=== PATIENT | female | born 1975 | race Caucasian/White ===

== ENCOUNTER → 2021-11-16 15:51 | Outpatient (CLI) | payer OTHER, MEDICAID, SELFPAY ==
--- NOTE | 2021-11-16 15:55 | DI.RAD.S_ITS ---
PROCEDURE: XR FOOT RT MIN 3V INDICATIONS: Right foot pain TECHNIQUE: 3 views of the foot were acquired. COMPARISON: None. FINDINGS: Bones: No fractures or dislocations. No suspicious bony lesions. Calcaneal spur is present. Soft tissues: No tibiotalar joint effusion. Achilles tendon appears normal. IMPRESSION: No visualized acute fracture or dislocation. However, if clinical concern and/or pain persist, short interval imaging followup in 7-10 days is recommended, as occult injury cannot be definitively excluded. Dictated by: Kathleen Urbano M.D. on 11/16/2021 at 21:01 Approved by: Kathleen Urbano M.D. on 11/16/2021 at 21:02
== END ==
PROVIDERS: Referring Provider Nurse Practitioner Family; Visit Provider Nurse Practitioner Family
DX: S99.921A Unspecified injury of right foot, initial encounter (principal); X58.XXXA Exposure to other specified factors, initial encounter
CPT/HCPCS: 73630

== ENCOUNTER → 2022-03-05 15:14 | Outpatient (CLI) | payer OTHER, MEDICAID, SELFPAY ==
[2022-03-05 15:49] LABS: Add Manual Diff / Slide Review NO; Basophils Absolute Auto 0 /uL (0-100); Basophils Percent Auto 0.8 % (0-2); Eosinophils Absolute Auto 100 /uL (0-450); Eosinophils Percent Auto 1.9 % (2-4); Hematocrit 46.2 % (36-46); Hemoglobin 15.3 g/dL (12.0-16.0); Lymphocytes Absolute Auto 1600 /uL (1100-4500); Lymphocytes Percent Auto 26.5 % (25-40); Mean Corpuscular HGB Conc 33.2 % (30-36); Mean Corpuscular Hemoglobin 30.8 PG (26-34); Mean Corpuscular Volume 92.9 fL (80-100); Monocytes Absolute Auto 600 /uL (0-900); Monocytes Percent Auto 9.3 % (3-14); Neutrophils Absolute Auto 3600 /uL (1500-7000); Neutrophils Percent Auto 61.5 % (50-75); Platelet Count 201 X10^3/uL (150-400); Red Blood Cell Count 4.97 X10^6/uL (4.0-5.2); White Blood Cell Count 5.9 X10^3/uL (4.5-11.0)
[2022-03-05 16:33] LABS: Alanine Aminotransferase 52 IU/L (<35); Albumin 4.5 g/dL (3.5-5.0); Albumin Globulin Ratio 1.4 (1.0-2.8); Alkaline Phosphatase 169 U/L (38-126); Aspartate Aminotransferase 30 IU/L (14-36); BUN Creatinine Ratio 30.4 (6-22); Bilirubin Total 0.4 mg/dL (0.2-1.3); Blood Urea Nitrogen 24 mg/dL (7-17); Calcium 10.2 mg/dL (8.4-10.2); Carbon Dioxide 25 mmol/L (22-32); Chloride 100 mmol/L (98-107); Cholesterol 157 mg/dL (140-199); Estimated Glomerular Filt Rate > 60 mL/min (>60); Globulin 3.3 g/dL (1.7-4.1); Glucose 333 mg/dL (70-100); HDL Cholesterol 91 mg/dL (40-60); HEMOLYSIS < 15 (0-50); LDL Cholesterol Calculated 17 mg/dL (<100); Potassium 4.4 mmol/L (3.4-5.1); Sodium 136 mmol/L (137-145); Total Protein 7.8 g/dL (6.3-8.2); Triglycerides 246 mg/dL (35-150)
[2022-03-05 17:17] LABS: Hemoglobin A1C% w Est Avg Glu 9.8 % (4.0-6.0)
[2022-03-05 19:39] LABS: Creatinine Urine Random 32.2 mg/dL
[2022-03-05 19:45] LABS: Microalbumin Urine Random 8.6 mg/dL (0-1.6)
== END ==
PROVIDERS: PCP Family Medicine; Referring Provider Family Medicine; Visit Provider Family Medicine
DX: E11.65 Type 2 diabetes mellitus with hyperglycemia (principal); E78.5 Hyperlipidemia, unspecified; I10 Essential (primary) hypertension; K50.90 Crohn's disease, unspecified, without complications; Z79.4 Long term (current) use of insulin; Z93.2 Ileostomy status
CPT/HCPCS: 36415; 80053; 80061; 82043; 82570; 83036; 85025

== ENCOUNTER → 2022-07-13 13:12 | Outpatient (CLI) | payer OTHER, MEDICAID, SELFPAY ==
[2022-07-13 13:57] LABS: Alanine Aminotransferase 57 IU/L (<35); Albumin 4.7 g/dL (3.5-5.0); Albumin Globulin Ratio 1.5 (1.0-2.8); Alkaline Phosphatase 106 U/L (38-126); Aspartate Aminotransferase 38 IU/L (14-36); Bilirubin Total 0.9 mg/dL (0.2-1.3); Bilirubin Unconjugated 0.6 mg/dL (0.0-1.1); Globulin 3.1 g/dL (1.7-4.1); HEMOLYSIS < 15 (0-50); Total Protein 7.8 g/dL (6.3-8.2)
[2022-07-13 16:14] LABS: Creatinine Urine Random 77.4 mg/dL
[2022-07-13 16:18] LABS: Microalbumi Creatinin Ratio Ur 140.8 ug/mg CR (<30); Microalbumin Urine Random 10.9 mg/dL (0-1.6)
[2022-07-14 06:07] LABS: x Labcorp Estim. Avg Glu (eAG) 237 mg/dL (.); x Labcorp Hemoglobin A1c 9.9 % (4.8-5.6)
== END ==
PROVIDERS: PCP Family Medicine; Referring Provider Registered Nurse Diabetes Educator; Visit Provider Registered Nurse Diabetes Educator
DX: E11.65 Type 2 diabetes mellitus with hyperglycemia (principal); Z79.4 Long term (current) use of insulin; R74.8 Abnormal levels of other serum enzymes; N89.8 Other specified noninflammatory disorders of vagina
CPT/HCPCS: 36415; 80076; 82043; 82570; 83036; 87210

== ENCOUNTER 2022-10-26 14:58 | Emergency (ER) | payer OTHER, MEDICAID, SELFPAY ==
[2022-10-26 15:02] VITALS: BP 118/92; PULSE 93; RESP 18; TEMP 36.6; O2SAT 98; BMI 26.9
[2022-10-26] MEDS: ONDANSETRON 4 MG/2 ML INJ IV (15:38)
[2022-10-26 15:47] LABS: Add Manual Diff / Slide Review NO; Basophils Absolute Auto 0 /uL (0-100); Basophils Percent Auto 0.8 % (0-2); Eosinophils Absolute Auto 100 /uL (0-450); Hematocrit 46.3 % (36-46); Hemoglobin 15.9 g/dL (12.0-16.0); Lymphocytes Absolute Auto 1400 /uL (1100-4500); Lymphocytes Percent Auto 24.3 % (25-40); Mean Corpuscular HGB Conc 34.3 % (30-36); Mean Corpuscular Hemoglobin 32.2 PG (26-34); Monocytes Absolute Auto 500 /uL (0-900); Monocytes Percent Auto 9.2 % (3-14); Neutrophils Absolute Auto 3700 /uL (1500-7000); Neutrophils Percent Auto 64.7 % (50-75); Platelet Count 181 X10^3/uL (150-400); Red Blood Cell Count 4.93 X10^6/uL (4.0-5.2); Red Cell Distribution Width 12.4 % (11.6-14.8); White Blood Cell Count 5.7 X10^3/uL (4.5-11.0)
[2022-10-26 15:50] LABS: Appearance Urine UA SL CLOUDY; Color Urine UA BROWN; Glucose Urine UA 3+ g/dL (Negative); Ketones Urine UA TRACE (NEGATIVE); Leukocyte Esterase Urine UA TRACE (NEGATIVE); Nitrite Urine UA NEGATIVE (Negative); Occult Blood Urine UA 3+ (Negative); Protein Urine UA 2+ (Negative); Specific Gravity Urine UA 1.025 (1.000-1.035); Urobilinogen Urine UA 0.2 E.U./dL (0.2)
[2022-10-26 15:52] LABS: pH Urine UA 5.5 (4.5-8.0)
[2022-10-26 15:54] LABS: Bilirubin Urine UA Negative (NEGATIVE); Pregnancy Test Urine Negative (Negative)
[2022-10-26 15:57] LABS: Bacteria Urine Few (2-10); Culture Indicated Urine Specimen Cultured; Ictotest Urine Negative (Negative); RBC Urine >100/HPF (0-5/HPF); Squamous Epithelial Cell Urine 0-1 /HPF (0-5/HPF); WBC Urine 10-30/HPF (0-5/HPF)
[2022-10-26 16:06] LABS: Alanine Aminotransferase 59 IU/L (<35); Albumin 4.6 g/dL (3.5-5.0); Albumin Globulin Ratio 1.2 (1.0-2.8); Alkaline Phosphatase 66 U/L (38-126); Aspartate Aminotransferase 61 IU/L (14-36); BUN Creatinine Ratio 25.5 (6-22); Blood Urea Nitrogen 28 mg/dL (7-17); Calcium 9.5 mg/dL (8.4-10.2); Carbon Dioxide 25 mmol/L (22-32); Chloride 100 mmol/L (98-107); Estimated Glomerular Filt Rate > 60 mL/min (>60); Globulin 3.8 g/dL (1.7-4.1); Glucose 239 mg/dL (70-100); HEMOLYSIS < 15 (0-50); Lipase 315 U/L (23-300); Potassium 3.9 mmol/L (3.4-5.1); Sodium 136 mmol/L (137-145); Total Protein 8.4 g/dL (6.3-8.2)
--- NOTE | 2022-10-26 18:45 | ED.ABDPAIN ---
HPI - Abdominal Pain General Chief Complaint: Abdominal Pain Stated Complaint: crohn's flare up Time Seen by Provider: 10/26/22 18:44 Source: patient Mode of arrival: Wheelchair History of Present Illness HPI narrative: 47-year-old female smoker with a history of Crohn's, PTSD, 79 she, anxiety, insomnia, depression, diverting ostomy, type 2 diabetes presents with a chief complaint of abdominal pain, decreased appetite with vomiting, and change in stoma output. She denies any routine medications for the treatment of her Crohn's and is not currently under the care of a oxygen system tester. She states that she is been well controlled for about the past 15 years. She denies any change in diet, no recent travel, change in medications. She states that she was able to keep a small amount of food down earlier with the help of Zofran. She states that she had no output from her stoma for about 48 hours and it started again today but is incredibly foul-smelling. Related Data Home Medications Medication Instructions Recorded Confirmed atorvastatin 20 mg tablet 20 mg PO 05/31/22 07/13/22 Previous Rx's Medication Instructions Recorded empagliflozin 25 mg tablet 25 mg PO DAILY #90 tabs 03/05/22 (Jardiance) fluoxetine 20 mg capsule (Prozac) 60 mg PO DAILY #90 caps 03/05/22 losartan 25 mg tablet 25 mg PO BID #180 tabs 03/05/22 metformin 500 mg tablet 1,000 mg PO BIDWMEAL #360 tabs 03/05/22 sitagliptin phosphate 100 mg 100 mg PO DAILY #90 tabs 03/05/22 tablet (Januvia) trazodone 50 mg tablet 50 mg PO DAILY #90 tabs 03/05/22 verapamil 120 mg 24 hr 120 mg PO DAILY #90 caps 03/05/22 capsule,extended release atorvastatin 40 mg tablet (Lipitor) 40 mg PO BEDTIME cholesterol #90 03/06/22 tabs estradiol 0.05 mg/24 hr semiweekly 1 patch transdermal 2XW #8 ea 04/07/22 transdermal patch (Vivelle-Dot) progesterone micronized 100 mg 100 mg PO BEDTIME PRN Post 04/07/22 capsule oophorectomy #30 caps liraglutide 0.6 mg/0.1 mL (18 mg/3 0.6 mg (0.1 mL) SUBCUT DAILY 04/13/22 mL) subcutaneous pen injector diabetes #6 mL (Victoza 2-Onel) aripiprazole 2 mg tablet 2 mg PO BEDTIME #30 tabs 05/31/22 fluoxetine 60 mg tablet 60 mg PO DAILY #90 tabs 05/31/22 pen needle, diabetic 31 gauge x #100 ea 06/04/22 5/16 (Easy Touch) clotrimazole 1 % topical cream 1 applic topical BID 4 weeks #45 10/12/22 grams insulin glargine 100 unit/mL (3 10 unit (0.1 mL) SUBCUT QPM 10/12/22 mL) subcutaneous pen (Lantus diabetes #15 mL Solostar U-100 Insulin) pen needle, diabetic 29 gauge x #100 ea 10/12/22 1 (1st Tier Unifine Pentips) ondansetron HCl 4 mg tablet 4 mg PO Q6-8H PRN nausea and 10/22/22 vomiting #30 tabs rizatriptan 10 mg tablet (Maxalt) 10 mg PO Q2-4H PRN migraine 10/22/22 headache #10 tabs hydrocodone 5 mg-acetaminophen 325 1 tab PO Q4-6H PRN pain #10 tabs 10/26/22 mg tablet hyoscyamine sulfate 0.125 mg tablet 0.125 mg PO BID-QID PRN dyspepsia 10/26/22 #20 tabs pantoprazole 40 mg tablet,delayed 40 mg PO DAILY #30 tabs 10/26/22 release (Protonix) Allergies Allergy/AdvReac Type Severity Reaction Status Date / Time No Known Drug Allergies Allergy Verified 10/26/22 15:06 Review of Systems Review of Systems Narrative: GENERAL: See HPI HEENT: Denies sinus pain, ear pain, sore throat, difficulty swallowing, dizziness. RESPIRATORY: Denies dyspnea, cough, wheezing, hemoptysis, sputum. CARDIOVASCULAR: Denies chest pain, palpitations, orthopnea, edema, GASTROINTESTINAL: See HPI : Denies dysuria, frequency, incontinence, hematuria, urinary retention. MUSCULOSKELETAL: denies weakness, joint pain, or bony pain SKIN: Denies rash, skin lesions, or other NEUROLOGIC: Denies weakness, headache, numbness, change in speech, confusion, seizures, incoordination. PSYCHIATRIC: No concerning psychosocial issues. 12 point review of systems is negative except for those stated above Patient History Medical History ADHD Anxiety Benign essential HTN Chicken pox (~1983) Crohn disease (~2003) Decreased libido Depression Frequent UTI (~1992) Hyperlipidemia Ileostomy in place Insomnia Kidney stones (~1993) Migraines Persistent microalbuminuria associated with type 2 diabetes mellitus PTSD (post-traumatic stress disorder) Type 2 diabetes mellitus with hyperglycemia, with long-term current use of insulin (~2003) Family History Father Hypertension Mental health problem Substance abuse Mother Cancer Mental health problem Grandfather Cancer Mental health problem Stroke Grandmother Diabetes mellitus History of heart disease Hyperlipidemia Hypertension Mental health problem Stroke Grandfather Diabetes mellitus History of heart disease Hyperlipidemia Hypertension Mental health problem Grandmother Diabetes mellitus History of heart disease Hypertension Mental health problem Social History Smoking Status: Current every day smoker Smoking Status: Current every day smoker alcohol intake frequency: a few times a month Substance Use Type: does not use Exam Narrative Exam Narrative: GENERAL: [47] year old patient appears stated age. Well-developed patient, in mild distress. HEAD: Atraumatic. Normocephalic. EYES: Pupils equal round and reactive. Extraocular motions intact. No scleral icterus. No injection or drainage. ENT: Nose without bleeding, purulent drainage. Throat without erythema, tonsillar hypertrophy or exudate. Airway patent. NECK: Trachea midline. Non tender CARDIOVASCULAR: Regular rate and rhythm without murmurs, gallops, or rubs. RESPIRATORY: Clear to auscultation. Breath sounds equal bilaterally. No wheezes, rales, or rhonchi. GASTROINTESTINAL: Abdomen soft, non-tender, nondistended. EXTREMITIES: No edema or joint tenderness. BACK: Nontender without deformity or crepitance. No flank tenderness. NEURO: AOx3. SKIN: No rash or erythema of visible areas Initial Vital Signs Initial Vital Signs: Vital Signs Temperature 97.9 F 10/26/22 15:02 Pulse Rate 93 H 10/26/22 15:02 Respiratory Rate 18 10/26/22 15:02 Blood Pressure 118/92 H 10/26/22 15:02 Pulse Oximetry 98 10/26/22 15:02 Oxygen Delivery Method Room Air 10/26/22 15:02 Course Orders Ordered: Discontinued Medications Hydrocodone Bitart/Acetaminophen (Hydrocodone/Acet 5/325 Prepack) 1 bottle MISC SEEINSTR ONE Stop: 10/26/22 20:21 Last Admin: 10/26/22 20:34 Dose: 1 bottle Documented By: SB Sodium Chloride (Normal Saline 0.9%) 1,000 mls @ 1,000 mls/hr IV BOLUS ONE Stop: 10/26/22 19:53 Last Infusion: 10/26/22 20:33 Dose: 0 mls/hr Documented By: Admin: 10/26/22 19:38 Dose: 1,000 mls/hr Documented By: SB Sodium Chloride (Normal Saline 0.9%) 1,000 mls @ 1,000 mls/hr IV BOLUS ONE Stop: 10/26/22 21:19 Last Infusion: 10/26/22 21:23 Dose: 0 mls/hr Documented By: Admin: 10/26/22 20:32 Dose: 1,000 mls/hr Documented By: SB Ketorolac Tromethamine (Ketorolac 30 Mg/Ml Vial) 15 mg IV NOW ONE Stop: 10/26/22 20:21 Last Admin: 10/26/22 20:33 Dose: 15 mg Documented By: WILFRED Metoclopramide HCl (Metoclopramide 10 Mg/2 Ml Inj) 10 mg IV NOW ONE Stop: 10/26/22 20:21 Last Admin: 10/26/22 20:33 Dose: 10 mg Documented By: SB Ondansetron HCl (Ondansetron 4 Mg Odt) 4 mg PO NOW PRN PRN Reason: Nausea And Vomiting Ondansetron HCl (Ondansetron 4 Mg/2 Ml Inj) 4 mg IV NOW PRN PRN Reason: Nausea And Vomiting Last Admin: 10/26/22 15:38 Dose: 4 mg Documented By: ROGE Pantoprazole Sodium (Pantoprazole 40 Mg Vial) 40 mg IV NOW ONE Stop: 10/26/22 18:55 Last Admin: 10/26/22 19:36 Dose: 40 mg Documented By: SB Vital Signs Vital signs: Vital Signs - 8 hr 10/26/22 20:30 10/26/22 21:16 Pulse Rate 80 88 Respiratory Rate 16 17 Blood Pressure 130/83 Pulse Oximetry 100 97 Oxygen Delivery Method Room Air Room Air MDM - Abdominal Pain Lab Data 10/26/22 15:35 10/26/22 15:35 Labs: Lab Results 10/26/22 10/26/22 10/26/22 Range/Units 15:30 15:30 15:35 WBC 5.7 (4.5-11.0) X10^3/uL RBC 4.93 (4.0-5.2) X10^6/uL Hgb 15.9 (12.0-16.0) g/dL Hct 46.3 H (36-46) % MCV 94.0 (80-100) fL MCH 32.2 (26-34) PG MCHC 34.3 (30-36) % RDW 12.4 (11.6-14.8) % Plt Count 181 (150-400) X10^3/uL Neut % (Auto) 64.7 (50-75) % Lymph % (Auto) 24.3 L (25-40) % Logan % (Auto) 9.2 (3-14) % Eos % (Auto) 1.0 L (2-4) % Baso % (Auto) 0.8 (0-2) % Neut # (Auto) 3700 (6465-4499) /uL Lymph # (Auto) 1400 (8814-5112) /uL Logan # (Auto) 500 (0-900) /uL Eos # (Auto) 100 (0-450) /uL Baso # (Auto) 0 (0-100) /uL Sodium (137-145) mmol/L Potassium (3.4-5.1) mmol/L Chloride (98-107) mmol/L Carbon Dioxide (22-32) mmol/L BUN (7-17) mg/dL Creatinine (0.52-1.04) mg/dL Estimated GFR (>60) mL/min BUN/Creatinine Ratio (6-22) Glucose (70-100) mg/dL Calcium (8.4-10.2) mg/dL Total Bilirubin (0.2-1.3) mg/dL AST (14-36) IU/L ALT (<35) IU/L Alkaline Phosphatase (38-126) U/L Total Protein (6.3-8.2) g/dL Albumin (3.5-5.0) g/dL Globulin (1.7-4.1) g/dL Albumin/Globulin Ratio (1.0-2.8) Lipase (23-300) U/L Urine Color Brown Urine Appearance Sl cloudy Urine pH 5.5 (4.5-8.0) Ur Specific Dell 1.025 (1.000-1.035) Urine Protein 2+ H (Negative) Urine Glucose (UA) 3+ H (Negative) g/dL Urine Ketones Trace H (NEGATIVE) Urine Occult Blood 3+ H (Negative) Urine Nitrate Negative (Negative) Urine Bilirubin Negative (NEGATIVE) Ur Bilirubin Confirm Negative (Negative) Urine Urobilinogen 0.2 (0.2) E.U./dL Ur Leukocyte Esterase Trace H (NEGATIVE) Urine RBC >100/hpf H (0-5/HPF) Urine WBC 10-30/hpf H (0-5/HPF) Ur Squamous Epith Cells 0-1 /hpf (0-5/HPF) Urine Bacteria Few (2-10) H (None) Ur Culture Indicated? Specimen cultured Urine Test Negative (Negative) 10/26/22 Range/Units 15:35 WBC (4.5-11.0) X10^3/uL RBC (4.0-5.2) X10^6/uL Hgb (12.0-16.0) g/dL Hct (36-46) % MCV (80-100) fL MCH (26-34) PG MCHC (30-36) % RDW (11.6-14.8) % Plt Count (150-400) X10^3/uL Neut % (Auto) (50-75) % Lymph % (Auto) (25-40) % Logan % (Auto) (3-14) % Eos % (Auto) (2-4) % Baso % (Auto) (0-2) % Neut # (Auto) (5318-0438) /uL Lymph # (Auto) (3028-8241) /uL Logan # (Auto) (0-900) /uL Eos # (Auto) (0-450) /uL Baso # (Auto) (0-100) /uL Sodium 136 L (137-145) mmol/L Potassium 3.9 (3.4-5.1) mmol/L Chloride 100 (98-107) mmol/L Carbon Dioxide 25 (22-32) mmol/L BUN 28 H (7-17) mg/dL Creatinine 1.10 H (0.52-1.04) mg/dL Estimated GFR > 60 (>60) mL/min BUN/Creatinine Ratio 25.5 H (6-22) Glucose 239 H (70-100) mg/dL Calcium 9.5 (8.4-10.2) mg/dL Total Bilirubin 1.0 (0.2-1.3) mg/dL AST 61 H (14-36) IU/L ALT 59 H (<35) IU/L Alkaline Phosphatase 66 (38-126) U/L Total Protein 8.4 H (6.3-8.2) g/dL Albumin 4.6 (3.5-5.0) g/dL Globulin 3.8 (1.7-4.1) g/dL Albumin/Globulin Ratio 1.2 (1.0-2.8) Lipase 315 H (23-300) U/L Urine Color Urine Appearance Urine pH (4.5-8.0) Ur Specific Dell (1.000-1.035) Urine Protein (Negative) Urine Glucose (UA) (Negative) g/dL Urine Ketones (NEGATIVE) Urine Occult Blood (Negative) Urine Nitrate (Negative) Urine Bilirubin (NEGATIVE) Ur Bilirubin Confirm (Negative) Urine Urobilinogen (0.2) E.U./dL Ur Leukocyte Esterase (NEGATIVE) Urine RBC (0-5/HPF) Urine WBC (0-5/HPF) Ur Squamous Epith Cells (0-5/HPF) Urine Bacteria (None) Ur Culture Indicated? Urine Test (Negative) [facility] Narrative Medical decision making narrative: CC: 47-year-old female with nausea, vomiting, decreased appetite Complicating co-morbidities: Crohn's, hyperlipidemia Data collected from: Patient Medical records reviewed: Prior notes reviewed in our EMR Differential considered, but not limited to: Crohn's flare versus obstruction versus infectious process versus other Exam documented above, pertinent findings include: Moist mucous membranes, heart rate regular, abdomen is soft, mildly tender, bowel sounds present Lab Test results independently reviewed as above. Pertinent findings: No leukocytosis or left shift, no signs of anemia, primary electrolytes within normal limits, creatinine slightly increased at 1.1 Independently reviewed EKG as above Imaging studies independently reviewed: ABD/Pelvis demonstrates mild stranding in the perirectal fat which could be inflammatory versus postsurgical change, prior colectomy and left renal scarring Treatments: Saline, Zofran, Protonix, Reglan, ketorolac Re-evaluations: Pain well controlled, patient tolerating orals Discussion: Patient's history and physical exam are reassuring, multiple diagnoses considered as noted above. Response to therapies is reassuring, no significant lab abnormalities and imaging shows no evidence a surgical cause, no bowel obstruction. Over the course of the visit her pain is well-controlled and she is tolerating orals. No further evaluation or treatment needed at this time. Patient appropriate for discharge. Disposition: see below, along with detailed discharge instructions that have been reviewed with patient as well as indications for ED re-evaluation and additional outpatient follow up Discharge Plan Departure Patient Disposition: Home Clinical Impression: Abdominal pain Instructions: DI for Abdominal Pain-Adult Activity Restrictions/Additional Instructions: *You have been diagnosed with [abdominal pain] * As we discussed your history and physical exam as well as labs and imaging are very reassuring. There is no evidence of any severe diagnoses that would require a specific or immediate intervention. *What to do: *Please continue to take your regular medications as directed. [x ] New medication prescriptions sent to your pharmacy: [ [facility]] *Please follow up with your primary care provider in 2-3 days, call for an appointment. Let them know you were seen in the Emergency Department and that we ask that you be seen in follow up. We will electronically transmit a record of today's note if your PCP is in our system *Please consider a clear liquid diet for the next 24-48 hours and then slowly advance to regular as tolerated. Also, try to avoid alcohol, nicotine, caffeine, spicy, acidic or fatty foods as this may worsen your symptoms *If you do not have a primary care provider please contact the [facility] Resource line at [phone]. They will ask some questions about your medical history and help get you set up with a doctor in the community. *Return to Emergency Department if you should have any new, worsening or concerning symptoms, such as [fever greater than 101 F, shaking chills, worsening pain, persistent vomiting or other bothersome symptoms] Prescriptions: New hydrocodone-acetaminophen 5-325 mg tablet 1 tab PO Q4-6H PRN (Reason: pain) Qty: 10 0RF pantoprazole [Protonix] 40 mg tablet,delayed release (DR/EC) 40 mg PO DAILY Qty: 30 0RF hyoscyamine sulfate 0.125 mg tablet 0.125 mg PO BID-QID PRN (Reason: dyspepsia) Qty: 20 0RF No Action atorvastatin [Lipitor] 40 mg tablet 40 mg PO BEDTIME Qty: 90 3RF rizatriptan [Maxalt] 10 mg tablet 10 mg PO Q2-4H PRN (Reason: migraine headache) Qty: 10 11RF Rx Instructions: do not exceed 2 doses per 24 hrs ondansetron HCl 4 mg tablet 4 mg PO Q6-8H PRN (Reason: nausea and vomiting) Qty: 30 2RF Jardiance 25 mg tablet 25 mg PO DAILY Qty: 90 3RF fluoxetine [Prozac] 20 mg capsule 60 mg PO DAILY Qty: 90 3RF losartan 25 mg tablet 25 mg PO BID Qty: 180 3RF metformin 500 mg tablet 1,000 mg PO BIDWMEAL Qty: 360 3RF Januvia 100 mg tablet 100 mg PO DAILY Qty: 90 3RF trazodone 50 mg tablet 50 mg PO DAILY Qty: 90 3RF verapamil 120 mg capsule,ext rel. pellets 24 hr 120 mg PO DAILY Qty: 90 3RF atorvastatin 20 mg tablet 20 mg PO aripiprazole 2 mg tablet 2 mg PO BEDTIME Qty: 30 1RF fluoxetine 60 mg tablet 60 mg PO DAILY Qty: 90 0RF (DME) pen needle, diabetic [Easy Touch] 31 gauge x 5/16 needle See Rx Instructions .ROUTE .MEDSUPPLY Qty: 100 3RF Rx Instructions: As directed, to be used to inject insulin once daily estradiol [Vivelle-Dot] 0.05 mg/24 hr patch semiweekly 1 patch transdermal 2XW Qty: 8 11RF Rx Instructions: apply 1 patch for 3 days alternating with 1 patch for 4 days each week for 3 wks per 4-wk cycle progesterone micronized 100 mg capsule 100 mg PO BEDTIME PRN (Reason: Post oophorectomy) Qty: 30 8RF Victoza 2-Onel 0.6 mg/0.1 mL (18 mg/3 mL) pen injector 0.6 mg SUBCUT DAILY Qty: 6 11RF insulin glargine [Lantus Solostar U-100 Insulin] 100 unit/mL (3 mL) insulin pen 10 unit SUBCUT QPM Qty: 15 11RF Rx Instructions: start 10 units, increase 1 unit every 2-3 days to a goal of 25-30 units nightly. clotrimazole 1 % cream 1 applic topical BID 28 Days Qty: 45 11RF Rx Instructions: to affected areas (DME) pen needle, diabetic [1st Tier Unifine Pentips] 29 gauge x 1/2 needle See Rx Instructions .Route Qty: 100 11RF Rx Instructions: As directed Referrals: Melissa Smith DO [Primary Care Provider] - Stand Alone Forms: Patient Portal/API
--- NOTE | 2022-10-26 18:54 | DI.CT.S_ITS ---
PROCEDURE: CT ABDOMEN PELVIS W CON INDICATIONS: abdominal pain, N/V, change in stoma output TECHNIQUE: After the administration of IV contrast, axial sections were acquired from the lung bases to the pubic symphysis. Coronal and sagittal reformats were performed. For radiation dose reduction, the following was used: automated exposure control, adjustment of mA and/or kV according to patient size. COMPARISON: None. FINDINGS: Image quality: Excellent. Lung bases: Unremarkable. Heart: No significant findings. ABDOMEN: Liver: No suspicious lesion. Gallbladder: Not distended. Biliary ducts: Unremarkable. Pancreas: Enhances uniformly. No peripancreatic fluid collection. Spleen: No splenomegaly. Adrenal Glands: No nodule. Kidneys and Ureters: Left renal scarring. 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 Left kidney superior pole mild caliectasis. Left kidney inferior pole nonobstructing calculus measuring 0.6 cm. No right hydronephrosis. Stomach and Bowel: Stomach is within normal limits. No small bowel obstruction. Right ileostomy. No fluid collection. Rectal stump. Mild stranding in the perirectal fat, (2/80). Colectomy. Peritoneum: No abnormal intraperitoneal fluid. No free air. Ventral Wall: No significant hernia. Abdominal Nodes: No retroperitoneal or mesenteric adenopathy by size criteria. Vessels: Aorta and inferior vena cava are normal in size. PELVIS: Pelvic Organs: Uterus is absent. Bladder: Decompressed. Pelvic Nodes: No enlarged lymph nodes. Miscellaneous: No inguinal hernias are seen. Bones: No suspicious lesion. Minimal scoliosis. IMPRESSION: 1. Mild stranding in the perirectal fat. This could be mild inflammatory change versus postsurgical change. 2. Colectomy. No small bowel obstruction. 3. Left renal scarring. 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 Small nonobstructing left kidney stone. Dictated by: Rafy Palmer M.D. on 10/26/2022 at 19:25 Approved by: Rafy Palmer M.D. on 10/26/2022 at 19:33
[2022-10-26 19:29] VITALS: BP 109/80; PULSE 86; RESP 16; O2SAT 97
[2022-10-26] MEDS: PANTOPRAZOLE 40 MG VIAL IV (19:36)
[2022-10-26] MEDS: SODIUM CHLORIDE 0.9% 1,000 ML 1000 ML IV ×2 (19:38→20:32)
[2022-10-26 20:00] VITALS: BP 118/80; PULSE 90; O2SAT 100
[2022-10-26 20:30] VITALS: PULSE 80; RESP 16; O2SAT 100
[2022-10-26] MEDS: KETOROLAC 30 MG/ML VIAL 15 MG IV (20:33)
[2022-10-26] MEDS: METOCLOPRAMIDE 10 MG/2 ML INJ IV (20:33)
[2022-10-26] MEDS: HYDROCODONE/ACET 5/325 PREPACK 1 BOTTLE MISC (20:34)
[2022-10-26 21:16] VITALS: BP 130/83; PULSE 88; RESP 17; O2SAT 97
== END 2022-10-26 21:24 | disposition home or self-care (01) ==
PROVIDERS: Emergency Medicine; Emergency Provider Emergency Medicine; PCP Family Medicine
DX: R10.9 Unspecified abdominal pain (principal); R11.2 Nausea with vomiting, unspecified
CPT/HCPCS: 36415; 74177; 80053; 81001; 81025; 83690; 85025; 87086; 96361; 96374; 96375; 99284; C9113; J1885; J2405; J2765; Q9967

== ENCOUNTER → 2022-11-16 16:48 | Outpatient (CLI) | payer OTHER, MEDICAID, SELFPAY ==
[2022-11-16 17:44] LABS: Hemoglobin A1C% w Est Avg Glu 7.9 % (4.0-6.0)
[2022-11-16 17:50] LABS: Add Manual Diff / Slide Review NO; Basophils Absolute Auto 100 /uL (0-100); Basophils Percent Auto 0.7 % (0-2); Eosinophils Absolute Auto 100 /uL (0-450); Eosinophils Percent Auto 1.4 % (2-4); Hematocrit 45.7 % (36-46); Hemoglobin 15.8 g/dL (12.0-16.0); Lymphocytes Absolute Auto 2100 /uL (1100-4500); Lymphocytes Percent Auto 26.1 % (25-40); Mean Corpuscular HGB Conc 34.6 % (30-36); Mean Corpuscular Hemoglobin 32.4 PG (26-34); Mean Corpuscular Volume 93.6 fL (80-100); Monocytes Absolute Auto 900 /uL (0-900); Monocytes Percent Auto 10.8 % (3-14); Neutrophils Absolute Auto 4900 /uL (1500-7000); Platelet Count 213 X10^3/uL (150-400); Red Blood Cell Count 4.88 X10^6/uL (4.0-5.2); Red Cell Distribution Width 12.6 % (11.6-14.8)
[2022-11-16 17:53] LABS: Alanine Aminotransferase 44 IU/L (<35); Albumin 4.8 g/dL (3.5-5.0); Albumin Globulin Ratio 1.3 (1.0-2.8); Alkaline Phosphatase 65 U/L (38-126); Aspartate Aminotransferase 42 IU/L (14-36); BUN Creatinine Ratio 29.4 (6-22); Blood Urea Nitrogen 30 mg/dL (7-17); Carbon Dioxide 19 mmol/L (22-32); Chloride 103 mmol/L (98-107); Estimated Glomerular Filt Rate > 60 mL/min (>60); Globulin 3.6 g/dL (1.7-4.1); Glucose 208 mg/dL (70-100); Lipase 814 U/L (23-300); Potassium 4.8 mmol/L (3.4-5.1); Sodium 136 mmol/L (137-145); Total Protein 8.4 g/dL (6.3-8.2)
[2022-11-16 17:54] LABS: HEMOLYSIS 63 (0-50)
== END ==
PROVIDERS: PCP Family Medicine; Referring Provider Family Medicine; Visit Provider Family Medicine
DX: E11.65 Type 2 diabetes mellitus with hyperglycemia (principal); K50.90 Crohn's disease, unspecified, without complications; K85.90 Acute pancreatitis without necrosis or infection, unspecified; Z79.4 Long term (current) use of insulin
CPT/HCPCS: 36415; 80053; 83036; 83690; 85025

== ENCOUNTER 2023-01-19 13:00 | Outpatient (RCR) | payer OTHER, MEDICAID, SELFPAY ==
[2022-12-23 09:27] VITALS: BP 119/85
--- NOTE | 2022-12-23 11:13 | PT.OIE ---
Current Diagnoses Spondylosis without myelopathy or radiculopathy, lumbar region (12/22/22) Sacrococcygeal disorders, not elsewhere classified (12/22/22) Weakness (12/22/22) Past Medical History (Last Reviewed 11/08/22 @ 10:41 by Wilder Wilkerson DO) ADHD Anxiety Benign essential HTN Chicken pox (~1983) Crohn disease (~2003) Decreased libido Depression Elevated LFTs Frequent UTI (~1992) Hyperlipidemia Ileostomy in place Insomnia Kidney stones (~1993) Migraines Persistent microalbuminuria associated with type 2 diabetes mellitus PTSD (post-traumatic stress disorder) Type 2 diabetes mellitus with hyperglycemia, with long-term current use of insulin (~2003) Visit Care Team Role Provider Type Melissa Smith DO Family Provider Physician Primary Care Provider Specialty: Family Practice Address: [address] [place] [address], [address], [address] Email: [email or web address] Maurice MD Attending Provider Physician Referring Provider Specialty: Orthopedics Orthopedic Surgery Address: [address] [place] [address], [id number] Email: [email or web address] Initial Evaluation PT-OP-A Visit Information Start: 12/23/22 09:26 Freq: Status: Active Protocol: Document 12/23/22 09:27 NM (Rec: 12/23/22 11:11 NM [id number]) Out-Patient Physical Therapy Visit Information Visit Information Visit Type Initial Evaluation Visit Start Time 13:00 Visit Stop Time 13:45 Total Visit Minutes 45 Visit Number 1 Evaluation Information Evaluation Date 12/23/22 Precautions Precautions Pt has tendency for dizzy spells, especially when changing positions. 1. allow for adequate time to change positions, especially sit > stand 2. Take vitals (blood pressure ) and have pt check blood glucose level 3. Colostomy bag PT-OP-B Current Condition Start: 12/23/22 09:26 Freq: Status: Active Protocol: Document 12/23/22 09:27 NM (Rec: 12/23/22 11:11 NM [id number]) Current Condition History of Current Condition Onset Date 12/2021 Current Complaints pain in low back and R hip, sensation changes, weakness History of Current Condition Pt presents to PT with a hx of low back pain and R hip pain beginning in 12/2021. Pt reports that she rolled her R ankle while walking in the sand in 11/2021, but continued to ambulate on her ankle for about a month before being placed in a walking boot; she believes that she performed movement compensations to avoid ankle pain during gait in that month interval, which led to the pain in her low back and hip. Currently, pt is experiencing trunk and RLE weakness, pain, difficulty ambulating more than 1 block, difficulty with position changes, difficulty with flexing her trunk, and activity tolerance. Overall, pt is largely sedentary. She reports that she has numbness/ tingling in her RLE similar to restless leg syndrome and occasionally her RLE feels like it will give out. Pt reports only one fall, but she was able to catch herself and lower carefully to the ground . This is further complicated by dizzy spells that occur with quick changes in position and forward flexion as if to sweet pickle maker an object from the ground; she is seeking care to determine the cause and currently suspects dehydration or blood glucose management. She has a PMH of diabetes mellitus, Crohn's, and hypertension. She also underwent surgery for pancreatitis in 10/2022. Prior Treatments and Tests Last orthopedic appt 10/2022 Treatment Goals Patient/Caregiver Goals To increase activity level, decrease low back and R hip pain Prior Functional Status Baseline Function- ADL's Independent Baseline Function- Mobility Independent Baseline Function- Gait no AD Current Functional Impairments (Reported) Functional Limitations- Mobility/Gait Only able to ambulate up to 1 block, no AD Personal Factors Other Personal Factors That May Effect Management of concurrent Therapy/Recovery health conditions: Crohn's, diabetes mellitus, blood pressure, pancreatitis PT-OP-C Subjective Start: 12/23/22 09:26 Freq: Status: Active Protocol: Document 12/23/22 09:27 NM (Rec: 12/23/22 11:11 NM [id number]) Patient Questionnaires Oswestry Low Back Index Oswestry Score OP-PT Pain Assessment Location Lumbar spine Pain Location Details around L5-S2 Intensity 3 Scale Used Numeric (0 - 10) Description Dull,Throbbing Frequency Frequent Pain Duration lasts minutes-hours Radiating Location radiates to R hip Variations/Patterns occasional radiation down RLE to R foot Pain Aggravating Factors Position,Changing Position, Activity,Exercise,Sitting, Walking,Bending Other Pain Aggravating Factors crossing legs Pain Alleviating Factors Position Other Pain Alleviating Factors stretching, particularly seated with B hip ER and trunk flexion Pain Behaviors Pain Behaviors Guarding,Holding Area PT-OP-D Balance Start: 12/23/22 09:26 Freq: Status: Active Protocol: Document 12/23/22 09:27 NM (Rec: 12/23/22 11:11 NM [id number]) OP-PT Balance Assessment Sitting Balance Static Sitting Balance Ability Normal Standing Balance Static Standing Balance Ability Normal Dynamic Standing Balance Ability Good Balance Tests Single Limb Standing Single Limb- Right 2 sec; compensates by placing foot on LLE; provokes symptoms in low back Single Limb- Left 20 sec before LOB Marshall Fall Scale Copyright Permission PT-OP-F Manual Assessment Start: 12/23/22 09:26 Freq: Status: Active Protocol: Document 12/23/22 09:27 NM (Rec: 12/23/22 11:11 NM [id number]) Manual Assessments Soft Tissue Assessment Soft Tissue Mobility Assessment Muscle guarding in lumbar spine along paraspinals. No tenderness at B piriformis or other gluteal muscles, proximal insertion of hamstrings. No tenderness or pain provoked at hip flexors or lateral hip muscles. Joint Mobility Assessment Joint Mobility Assessment Hypomobile R SIJ with P-A springing. Lumbosacral spine ( L1-L5) normal mobility with P- A springing, S1-S2 more hypomobile and provokes symptoms in low back. Overall, R hip less mobile than L hip. B hip IR more limited than B hip ER while in hip flexion, and R IR provokes symptoms in low back. PT-OP-G Mobility & Gait Start: 12/23/22 09:26 Freq: Status: Active Protocol: Document 12/23/22 09:27 NM (Rec: 12/23/22 11:11 NM [id number]) OP Gait Assessment Gait Gait Assistance Required: Independent Assistive Devices Assistive Device None Gait Deviations General Gait Pattern Antalgic,Flexed Trunk Factors Limiting Gait Function Factors Limiting Gait Function Decreased Sensation,Decreased Strength,Limited Range of Motion,Pain PT-OP-H Neuro Start: 12/23/22 09:26 Freq: Status: Active Protocol: Document 12/23/22 09:27 NM (Rec: 12/23/22 11:11 NM [id number]) Sensation Evaluation Gross Sensation Gross Sensation Right LE Impaired Dermatome Impairments L3,L4 Comments Summary Comments Decreased ability to detect light touch sensation in RLE, particularly in L3-L4 dermatomes. Vital Signs Blood Pressure Seated Blood Pressure (90/60-120/80 mmHg) 119/85 H Blood Pressure Source Automatic Cuff,Right Upper Extremity Comments Vital Signs Comments Baseline BP Pt reports high blood pressure normally PT-OP-J Posture/Palpation/Skin Start: 12/23/22 09:26 Freq: Status: Active Protocol: Document 12/23/22 09:27 NM (Rec: 12/23/22 11:11 NM [id number]) Posture Evaluation Position Standing Evaluation View anterior, posterior, and lateral Head/C-Spine Posture Flexed T-Spine Posture Increased Kyphosis Thorax Posture (L) Elevated L-Spine Posture Flattened Scapula Posture (L) Protracted,(L) Elevated Pelvis Posture Posterior Tilted Weight Distribution Weight Shifted Left,Decreased Wt.Bear on (R) Hip Posture (L) Externally Rotated,(R) Externally Rotated Palpation Assessment Location R SIJ Palpation Location sacral base Palpation Findings Tenderness Palpation Details Extreme tenderness at R sacral base, decreasing in severity as moving inferior toward R SHARIF PT-OP-K Range of Motion Start: 12/23/22 09:26 Freq: Status: Active Protocol: Document 12/23/22 09:27 NM (Rec: 12/23/22 11:11 NM [id number]) Lumbar Spine Range of Motion Lumbar Spine Active Degrees Testing Position Standing Flexion 10 Extension 15 Rotation Left 4 Rotation Right 4 Lateral Flexion Left 25 Lateral Flexion Right 25 Comments -Rotation measured in inches with tape measure. -Reports good stretching with lateral flexion -Pain with flexion and extension, extension is more provocative. -Pt unwilling to flex further due to fear of dizzy spell Hip Goniometric Range of Motion Hip Left Testing Position supine and sitting Comments Unable to formally assess due to time constraints. Will assess in next session. Right Hip ROM WFL No Testing Position sitting and supine Comments Unable to formally assess due to time constraints; will assess in next session. Observed limited R IR, also provoked symptoms in low back PT-OP-L Special Tests Start: 12/23/22 09:26 Freq: Status: Active Protocol: Document 12/23/22 09:27 NM (Rec: 12/23/22 11:11 NM [id number]) Special Tests Lumbar Spine Special Tests SIJ Sacral Thrust Test Results positive -R sacral base SIJ Gaenslen Test Results negative SIJ Sacral Springing Test Results Positive-R Comments reproduces symptoms at SIJ SIJ Thigh thrust Test Results positive -R Comments reproduces symptoms at SIJ SIJ Posterior Distraction Test Results negative SIJ Anterior Compression Test Results negative Straight Leg Raise Test Results positive -B Comments tension relieved with plantarflexion Slump Test Results positive-R, negative-L Comments positive tension sign on R side, improved with cervical extension Hernandez/Quadrant Test Results positive- B Comments reproduced symptoms Hip Special Tests Anterior Labral Test Test Results negative -R Comments no clicking/locking, but does provoke pain in R hip and low back Will Test Results negative - B PT-OP-M Strength Start: 12/23/22 09:26 Freq: Status: Active Protocol: Document 12/23/22 09:27 NM (Rec: 12/23/22 11:11 NM [id number]) Trunk Strength Trunk Manual Muscle Testing Testing Position standing Flexion 3+ Fair+ Extension 3+ Fair+ Rotation Left 4 Good Rotation Right 4 Good Lateral Flexion Left 4 Good Lateral Flexion Right 4 Good Comments pain with flexion and extension, able to withstand min resistance Hip Strength Hip Manual Muscle Testing Left Flexion (L2) 4 Good Extension (S1) 4 Good Abduction 4- Good- Adduction 4 Good External Rotation 4 Good Internal Rotation 4- Good- Right Flexion (L2) 4 Good Extension (S1) 4- Good- Abduction 4- Good- Adduction 4- Good- External Rotation 4- Good- Internal Rotation 4- Good- PT-OP-T Assessment and Plan Start: 12/23/22 09:26 Freq: Status: Active Protocol: Document 12/23/22 09:27 NM (Rec: 12/23/22 11:11 NM [id number]) Physical Therapy Assessment Rehab Potential Rehabilitation Potential Good Evaluation Complexity Number of Personal Factors/Comorbidities 3 or More Number of Body Systems Impaired 3 Clinical Presentation at Evaluation Evolving Impairments Impairments Activity Tolerance,Balance, Functional Activities, Functional Mobility,Gait,Pain, Posture,ROM,Sensation,Soft Tissue Mobility,Strength, Transfers Other Impairments Positional changes Other Concerns Fall Risk moderate Barriers to Rehabilitation Concurrent health concerns: recent pancreatitis or Crohn's exacerbation; pt is also currently in the process of changing her insulin distributor for her diabetes Goals Five Impairment strength Impairment R hip strength globally 4-/5 Short Term Goal (STG) Pt will maintain R hip strength (abd, flex, ext) to at least 4/5 for better stability and endurance during gait for errands. STG Duration 3 weeks Entry Level Java Developer Goal (LTG) Pt will improve R hip strength (abd, flex, ext) to at least 4/5 for better stability and endurance during gait and community-based activities. LTG Duration 6 weeks Four Impairment ROM Impairment Trunk flexion ROM 10 deg, extension ROM 15 deg Short Term Goal (STG) Pt will improve trunk ROM at least 3 degrees in order to demonstrate improved functional mobility, pain and activity tolerance, and to be able to don/doff shoes and pick objects from a lower level. STG Duration 3 weeks Snf Goal (LTG) Pt will improve trunk ROM by at least 5 degrees in order to demonstrate improved functional mobility, pain and activity tolerance, and to be able to don/doff shoes and sweet pickle maker objects from a lower level. LTG Duration 6 week Three Impairment strength, balance Impairment Pt is unable to perform R SLS without LOB, compensations, and pain Short Term Goal (STG) Pt will be able to perform SLS on RLE for at least 10 seconds without compensations to show improved LE strength and balance. STG Duration 3 weeks Entry Level Java Developer Goal (LTG) Pt will be able to perform SLS on RLE for at least 20 seconds without compensations to show improved LE strength, pelvic stability, and balance. LTG Duration 6 weeks Two Impairment pain, function Impairment Oswestry score 11/50 Short Term Goal (STG) Pt will improve Oswestry score by at least 3 points (half MCID) in order to demonstrate improved strength and activity tolerance. STG Duration 3 weeks Entry Level Java Developer Goal (LTG) Pt will improve Oswestry score by at least 6 points (MCID) in order to demonstrate improved strength, activity tolerance, and pain management . LTG Duration 6 weeks One Impairment function, gait Impairment Pt unable to ambulate at community distances without taking a break Short Term Goal (STG) Pt will be able to complete a 6 MWT with 2 or fewer seated breaks, ambulating at least 200m (community distance) in order to demonstrate improved activity tolerance and pain management in order to integrate better into the community. STG Duration 3 weeks Snf Goal (LTG) Pt will be able to complete a 6 MWT with 1 or fewer seated breaks, ambulating at least 200m (community distance) in order to demonstrate improved activity tolerance and pain management to be able to perform errands. LTG Duration 6 weeks Assessment Summary Assessment Pt is a 47 y.o. female presenting with chronic low back pain and R hip pain that radiates frequently to her R foot. Pain can be pinpointed to the S1-S2 segments and R SIJ, which is tender and hypomobile compared to her L SIJ, and will reproduce similar symptoms with P-A springing; pt is positive for 3/6 tests in the [place] SIJ cluster. Neural tension tests also reproduce the pain in her lumbar spine and R hip. Symptoms are also reproduced during R single leg stance, trunk flexion/extension ROM, and resisted muscle tests. Pt also has decreased BLE strength and requires rest after few resistance test due to deconditioning from a sedentary lifestyle. Over the past several months, pt has experienced several health problems which may limit her ability to participate in PT regularly. Currently, impairments include trunk and BLE weakness, decreased ROM, poor activity tolerance, antalgic gait and difficulty ambulating community distances , difficulty with bending and changing positions, and decreased balance. Pt is a good candidate for skilled PT to address above impairments in order to improve quality of life, decrease fall risk, manage pain, and improve activity tolerance. Physical Therapy Plan Frequency and Duration Frequency of Treatment 2x/Week Duration of treatment (weeks) 6 Plan of Care Start Date 12/22/22 Plan of Care End Date 02/02/23 Therapeutic Interventions Therapeutic Interventions Balance Training,Coordination Training,Gait Training,Home Exercise Program,Joint Mobilizations,Manual Therapy, Neuromuscular Re-education, Patient/Caregiver Education, Self-Care/Home Management, Sensory Integration,Soft Tissue Mobilization,Taping, Therapeutic Activities, Therapeutic Exercises Modalities Cold Pack/Ice Massage,Electric Stimulation,Hot Packs, Traction- Mechanical, Ultrasound Other Therapeutic Interventions Muscle-energy techniques Next Visit Focus/Plan Next Note Type Treatment Note Next Visit Plan Take hip ROM. Initiate hip and core strengthening, likely flexion-biased. Address neural tension. Stretching ok. Gentle mobilizations to lumbar spine and SIJ. Provide HEP. Education on posture (no sitting crossed leg, etc)
--- NOTE | 2022-12-24 14:16 | PT.OTN ---
Current Diagnoses Spondylosis without myelopathy or radiculopathy, lumbar region (12/24/22) Sacrococcygeal disorders, not elsewhere classified (12/24/22) Weakness (12/24/22) Physical Therapy Treatment Note PT-OP-A Visit Information Start: 12/23/22 09:26 Freq: Status: Active Protocol: Document 12/24/22 13:05 NM (Rec: 12/24/22 14:14 NM [id number]) Out-Patient Physical Therapy Visit Information Visit Information Visit Type Treatment Note Visit Start Time 13:02 Visit Stop Time 13:45 Total Visit Minutes 43 Visit Number 2 Evaluation Information Evaluation Date 12/23/22 Precautions Precautions Pt has tendency for dizzy spells, especially when changing positions. 1. allow for adequate time to change positions, especially sit > stand 2. Take vitals (blood pressure ) and have pt check blood glucose level 3. Colostomy bag PT-OP-B Current Condition Start: 12/23/22 09:26 Freq: Status: Active Protocol: Document 12/23/22 09:27 NM (Rec: 12/23/22 11:11 NM [id number]) Current Condition History of Current Condition Onset Date 12/2021 Current Complaints pain in low back and R hip, sensation changes, weakness History of Current Condition Pt presents to PT with a hx of low back pain and R hip pain beginning in 12/2021. Pt reports that she rolled her R ankle while walking in the sand in 11/2021, but continued to ambulate on her ankle for about a month before being placed in a walking boot; she believes that she performed movement compensations to avoid ankle pain during gait in that month interval, which led to the pain in her low back and hip. Currently, pt is experiencing trunk and RLE weakness, pain, difficulty ambulating more than 1 block, difficulty with position changes, difficulty with flexing her trunk, and activity tolerance. Overall, pt is largely sedentary. She reports that she has numbness/ tingling in her RLE similar to restless leg syndrome and occasionally her RLE feels like it will give out. Pt reports only one fall, but she was able to catch herself and lower carefully to the ground . This is further complicated by dizzy spells that occur with quick changes in position and forward flexion as if to berry picker an object from the ground; she is seeking care to determine the cause and currently suspects dehydration or blood glucose management. She has a PMH of diabetes mellitus, Crohn's, and hypertension. She also underwent surgery for pancreatitis in 10/2022. Prior Treatments and Tests Last orthopedic appt 10/2022 Treatment Goals Patient/Caregiver Goals To increase activity level, decrease low back and R hip pain Prior Functional Status Baseline Function- ADL's Independent Baseline Function- Mobility Independent Baseline Function- Gait no AD Current Functional Impairments (Reported) Functional Limitations- Mobility/Gait Only able to ambulate up to 1 block, no AD Personal Factors Other Personal Factors That May Effect Management of concurrent Therapy/Recovery health conditions: Crohn's, diabetes mellitus, blood pressure, pancreatitis PT-OP-C Subjective Start: 12/23/22 09:26 Freq: Status: Active Protocol: Document 12/24/22 13:05 NM (Rec: 12/24/22 14:14 NM [id number]) OP-PT Subjective Patient Comments Patient Comments Pt reports that she is doing well overall, 0/10 pain in her back and R hip. She states that she is tired. PT-OP-D Balance Start: 12/23/22 09:26 Freq: Status: Active Protocol: Document 12/23/22 09:27 NM (Rec: 12/23/22 11:11 NM [id number]) OP-PT Balance Assessment Sitting Balance Static Sitting Balance Ability Normal Standing Balance Static Standing Balance Ability Normal Dynamic Standing Balance Ability Good Balance Tests Single Limb Standing Single Limb- Right 2 sec; compensates by placing foot on LLE; provokes symptoms in low back Single Limb- Left 20 sec before LOB Marshall Fall Scale Copyright Permission PT-OP-F Manual Assessment Start: 12/23/22 09:26 Freq: Status: Active Protocol: Document 12/23/22 09:27 NM (Rec: 12/23/22 11:11 NM [id number]) Manual Assessments Soft Tissue Assessment Soft Tissue Mobility Assessment Muscle guarding in lumbar spine along paraspinals. No tenderness at B piriformis or other gluteal muscles, proximal insertion of hamstrings. No tenderness or pain provoked at hip flexors or lateral hip muscles. Joint Mobility Assessment Joint Mobility Assessment Hypomobile R SIJ with P-A springing. Lumbosacral spine ( L1-L5) normal mobility with P- A springing, S1-S2 more hypomobile and provokes symptoms in low back. Overall, R hip less mobile than L hip. B hip IR more limited than B hip ER while in hip flexion, and R IR provokes symptoms in low back. PT-OP-G Mobility & Gait Start: 12/23/22 09:26 Freq: Status: Active Protocol: Document 12/23/22 09:27 NM (Rec: 12/23/22 11:11 NM [id number]) OP Gait Assessment Gait Gait Assistance Required: Independent Assistive Devices Assistive Device None Gait Deviations General Gait Pattern Antalgic,Flexed Trunk Factors Limiting Gait Function Factors Limiting Gait Function Decreased Sensation,Decreased Strength,Limited Range of Motion,Pain PT-OP-H Neuro Start: 12/23/22 09:26 Freq: Status: Active Protocol: Document 12/23/22:27 NM (Rec: 12/23/22 11:11 NM [id number]) Sensation Evaluation Gross Sensation Gross Sensation Right LE Impaired Dermatome Impairments L3,L4 Comments Summary Comments Decreased ability to detect light touch sensation in RLE, particularly in L3-L4 dermatomes. Vital Signs Blood Pressure Seated Blood Pressure (90/60-120/80 mmHg) 119/85 H Blood Pressure Source Automatic Cuff,Right Upper Extremity Comments Vital Signs Comments Baseline BP Pt reports high blood pressure normally PT-OP-J Posture/Palpation/Skin Start: 12/23/22 09:26 Freq: Status: Active Protocol: Document 12/23/22 09:27 NM (Rec: 12/23/22 11:11 NM [id number]) Posture Evaluation Position Standing Evaluation View anterior, posterior, and lateral Head/C-Spine Posture Flexed T-Spine Posture Increased Kyphosis Thorax Posture (L) Elevated L-Spine Posture Flattened Scapula Posture (L) Protracted,(L) Elevated Pelvis Posture Posterior Tilted Weight Distribution Weight Shifted Left,Decreased Wt.Bear on (R) Hip Posture (L) Externally Rotated,(R) Externally Rotated Palpation Assessment Location R SIJ Palpation Location sacral base Palpation Findings Tenderness Palpation Details Extreme tenderness at R sacral base, decreasing in severity as moving inferior toward R SHARIF PT-OP-K Range of Motion Start: 12/23/22 09:26 Freq: Status: Active Protocol: Document 12/23/22 09:27 NM (Rec: 12/23/22 11:11 NM [id number]) Lumbar Spine Range of Motion Lumbar Spine Active Degrees Testing Position Standing Flexion 10 Extension 15 Rotation Left 4 Rotation Right 4 Lateral Flexion Left 25 Lateral Flexion Right 25 Comments -Rotation measured in inches with tape measure. -Reports good stretching with lateral flexion -Pain with flexion and extension, extension is more provocative. -Pt unwilling to flex further due to fear of dizzy spell Hip Goniometric Range of Motion Hip Left Testing Position supine and sitting Comments Unable to formally assess due to time constraints. Will assess in next session. Right Hip ROM WFL No Testing Position sitting and supine Comments Unable to formally assess due to time constraints; will assess in next session. Observed limited R IR, also provoked symptoms in low back PT-OP-L Special Tests Start: 12/23/22 09:26 Freq: Status: Active Protocol: Document 12/23/22 09:27 NM (Rec: 12/23/22 11:11 NM [id number]) Special Tests Lumbar Spine Special Tests SIJ Sacral Thrust Test Results positive -R sacral base SIJ Gaenslen Test Results negative SIJ Sacral Springing Test Results Positive-R Comments reproduces symptoms at SIJ SIJ Thigh thrust Test Results positive -R Comments reproduces symptoms at SIJ SIJ Posterior Distraction Test Results negative SIJ Anterior Compression Test Results negative Straight Leg Raise Test Results positive -B Comments tension relieved with plantarflexion Slump Test Results positive-R, negative-L Comments positive tension sign on R side, improved with cervical extension Hernandez/Quadrant Test Results positive- B Comments reproduced symptoms Hip Special Tests Anterior Labral Test Test Results negative -R Comments no clicking/locking, but does provoke pain in R hip and low back Will Test Results negative - B PT-OP-M Strength Start: 12/23/22 09:26 Freq: Status: Active Protocol: Document 12/23/22 09:27 NM (Rec: 12/23/22 11:11 NM [id number]) Trunk Strength Trunk Manual Muscle Testing Testing Position standing Flexion 3+ Fair+ Extension 3+ Fair+ Rotation Left 4 Good Rotation Right 4 Good Lateral Flexion Left 4 Good Lateral Flexion Right 4 Good Comments pain with flexion and extension, able to withstand min resistance Hip Strength Hip Manual Muscle Testing Left Flexion (L2) 4 Good Extension (S1) 4 Good Abduction 4- Good- Adduction 4 Good External Rotation 4 Good Internal Rotation 4- Good- Right Flexion (L2) 4 Good Extension (S1) 4- Good- Abduction 4- Good- Adduction 4- Good- External Rotation 4- Good- Internal Rotation 4- Good- PT-OP-Q Treatments Start: 12/23/22 09:26 Freq: Status: Active Protocol: Document 12/24/22 13:05 NM (Rec: 12/24/22 14:14 NM [id number]) Cardio Equipment Recumbent Stepper (Sci-Fit) Duration (Minutes) 4 Resistance 1 Seat Position 11 Other for reciprocal motion Therapeutic Exercises Supine Exercises 90/90 spinal decompression Side bilateral Equipment Used bolster under legs Reps/Minutes 4 minutes Comments for spinal decompression piriformis stretch Side bilateral Comments leg crossed over, use hand for gentle stretch BKFO Side bilateral Reps/Minutes 2x10 Comments tiring, cues for decreased range with exhaustion Bridge + ADD Side bilateral Equipment Used pillow between legs Reps/Minutes 2x20, 2 isometric at top of range Comments cues for glute activation, tiring Prone Exercises hip extension Side bilateral Reps/Minutes 1x10, 1x5 Comments R hip pain after 10 reps Sidelying Exercises Hip abduction Side bilateral Reps/Minutes 2x10 Comments cues for heel up/toe down Manual Therapy Treatment Nerve Glides Sciatic Details legs over orange SB Body Position Supine Reps/Duration 15 Comments reports relief Other Other Manual Treatments Muscle Energy Technique: Simultaneous hip extension and hip flexion isometric for hip strengthening and to provide a gentle mobilization to the SIJ. 5x5 isometric at 25% of force PT-OP-T Assessment and Plan Start: 12/23/22 09:26 Freq: Status: Active Protocol: Document 12/24/22 13:05 NM (Rec: 12/24/22 14:14 NM [id number]) Physical Therapy Assessment Goals Five Impairment strength Impairment R hip strength globally 4-/5 Short Term Goal (STG) Pt will maintain R hip strength (abd, flex, ext) to at least 4/5 for better stability and endurance during gait for errands. STG Duration 3 weeks Halfway Goal (LTG) Pt will improve R hip strength (abd, flex, ext) to at least 4/5 for better stability and endurance during gait and community-based activities. LTG Duration 6 weeks Four Impairment ROM Impairment Trunk flexion ROM 10 deg, extension ROM 15 deg Short Term Goal (STG) Pt will improve trunk ROM at least 3 degrees in order to demonstrate improved functional mobility, pain and activity tolerance, and to be able to don/doff shoes and pick objects from a lower level. STG Duration 3 weeks Pot Builder Goal (LTG) Pt will improve trunk ROM by at least 5 degrees in order to demonstrate improved functional mobility, pain and activity tolerance, and to be able to don/doff shoes and berry picker objects from a lower level. LTG Duration 6 week Three Impairment strength, balance Impairment Pt is unable to perform R SLS without LOB, compensations, and pain Short Term Goal (STG) Pt will be able to perform SLS on RLE for at least 10 seconds without compensations to show improved LE strength and balance. STG Duration 3 weeks Pot Builder Goal (LTG) Pt will be able to perform SLS on RLE for at least 20 seconds without compensations to show improved LE strength, pelvic stability, and balance. LTG Duration 6 weeks Two Impairment pain, function Impairment Oswestry score 11/50 Short Term Goal (STG) Pt will improve Oswestry score by at least 3 points (half MCID) in order to demonstrate improved strength and activity tolerance. STG Duration 3 weeks Halfway Goal (LTG) Pt will improve Oswestry score by at least 6 points (MCID) in order to demonstrate improved strength, activity tolerance, and pain management . LTG Duration 6 weeks One Impairment function, gait Impairment Pt unable to ambulate at community distances without taking a break Short Term Goal (STG) Pt will be able to complete a 6 MWT with 2 or fewer seated breaks, ambulating at least 200m (community distance) in order to demonstrate improved activity tolerance and pain management in order to integrate better into the community. STG Duration 3 weeks Pot Builder Goal (LTG) Pt will be able to complete a 6 MWT with 1 or fewer seated breaks, ambulating at least 200m (community distance) in order to demonstrate improved activity tolerance and pain management to be able to perform errands. LTG Duration 6 weeks Assessment Summary Assessment Pt tolerated treatment fair. Initiated gentle glute strengthening in supine. Pt able to tolerate sidelying hip abd and supine glute exercises well; however, difficulty with prone hip extension, even with a pillow due to discomfort in her R hip . Bilateral sciatic nerve mobilization performed to address nerve tension and address tightness in the hamstrings; pt reports feeling relief with mobilization but will follow up in next session . At this time, pt gets most relief during flexion-biased exercises and gentle low back stretching. Pt is moderately deconditioned and is easily fatigued. Pt would benefit from skilled PT to address impairments in endurance, strength, ROM, and gait to promote improved quality of life and activity tolerance. Physical Therapy Plan Frequency and Duration Frequency of Treatment 2x/Week Duration of treatment (weeks) 6 Plan of Care Start Date 12/22/22 Plan of Care End Date 02/02/23 Therapeutic Interventions Therapeutic Interventions Balance Training,Coordination Training,Gait Training,Home Exercise Program,Joint Mobilizations,Manual Therapy, Neuromuscular Re-education, Patient/Caregiver Education, Self-Care/Home Management, Sensory Integration,Soft Tissue Mobilization,Taping, Therapeutic Activities, Therapeutic Exercises Modalities Cold Pack/Ice Massage,Electric Stimulation,Hot Packs, Traction- Mechanical, Ultrasound Other Therapeutic Interventions Muscle-energy techniques Next Visit Focus/Plan Next Note Type Treatment Note Next Visit Plan Continue hip, core, and trunk strengthening with emphasis on endurance. Flexion preference . Determine if nerve mobilizations were helpful.
--- NOTE | 2022-12-29 16:10 | PT.OTN ---
Current Diagnoses Spondylosis without myelopathy or radiculopathy, lumbar region (12/29/22) Sacrococcygeal disorders, not elsewhere classified (12/29/22) Weakness (12/29/22) Physical Therapy Treatment Note PT-OP-A Visit Information Start: 12/23/22 09:26 Freq: Status: Active Protocol: Document 12/29/22 13:01 NM (Rec: 12/29/22 13:43 NM [id number]) Out-Patient Physical Therapy Visit Information Visit Information Visit Type Treatment Note Visit Start Time 13:00 Visit Stop Time 13:43 Total Visit Minutes 43 Visit Number 3 Evaluation Information Evaluation Date 12/23/22 PT-OP-B Current Condition Start: 12/23/22 09:26 Freq: Status: Active Protocol: Document 12/23/22 09:27 NM (Rec: 12/23/22 11:11 NM [id number]) Current Condition History of Current Condition Onset Date 12/2021 Current Complaints pain in low back and R hip, sensation changes, weakness History of Current Condition Pt presents to PT with a hx of low back pain and R hip pain beginning in 12/2021. Pt reports that she rolled her R ankle while walking in the sand in 11/2021, but continued to ambulate on her ankle for about a month before being placed in a walking boot; she believes that she performed movement compensations to avoid ankle pain during gait in that month interval, which led to the pain in her low back and hip. Currently, pt is experiencing trunk and RLE weakness, pain, difficulty ambulating more than 1 block, difficulty with position changes, difficulty with flexing her trunk, and activity tolerance. Overall, pt is largely sedentary. She reports that she has numbness/ tingling in her RLE similar to restless leg syndrome and occasionally her RLE feels like it will give out. Pt reports only one fall, but she was able to catch herself and lower carefully to the ground . 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 She has a PMH of diabetes mellitus, Crohn's, and hypertension. She also underwent surgery for pancreatitis in 10/2022. Prior Treatments and Tests Last orthopedic appt 10/2022 Treatment Goals Patient/Caregiver Goals To increase activity level, decrease low back and R hip pain Prior Functional Status Baseline Function- ADL's Independent Baseline Function- Mobility Independent Baseline Function- Gait no AD Current Functional Impairments (Reported) Functional Limitations- Mobility/Gait Only able to ambulate up to 1 block, no AD Personal Factors Other Personal Factors That May Effect Management of concurrent Therapy/Recovery health conditions: Crohn's, diabetes mellitus, blood pressure, pancreatitis PT-OP-C Subjective Start: 12/23/22 09:26 Freq: Status: Active Protocol: Document 12/29/22 13:01 NM (Rec: 12/29/22 13:43 NM [id number]) OP-PT Subjective Patient Comments Patient Comments Pt reports 2-3/10 R hip/low back pain. She is also sore after performing her exercises , but she says that they are helping her overall. PT-OP-D Balance Start: 12/23/22 09:26 Freq: Status: Active Protocol: Document 12/23/22 09:27 NM (Rec: 12/23/22 11:11 NM [id number]) OP-PT Balance Assessment Sitting Balance Static Sitting Balance Ability Normal Standing Balance Static Standing Balance Ability Normal Dynamic Standing Balance Ability Good Balance Tests Single Limb Standing Single Limb- Right 2 sec; compensates by placing foot on LLE; provokes symptoms in low back Single Limb- Left 20 sec before LOB Marshall Fall Scale Copyright Permission PT-OP-F Manual Assessment Start: 12/23/22 09:26 Freq: Status: Active Protocol: Document 12/23/22 09:27 NM (Rec: 12/23/22 11:11 NM [id number]) Manual Assessments Soft Tissue Assessment Soft Tissue Mobility Assessment Muscle guarding in lumbar spine along paraspinals. No tenderness at B piriformis or other gluteal muscles, proximal insertion of hamstrings. No tenderness or pain provoked at hip flexors or lateral hip muscles. Joint Mobility Assessment Joint Mobility Assessment Hypomobile R SIJ with P-A springing. Lumbosacral spine ( L1-L5) normal mobility with P- A springing, S1-S2 more hypomobile and provokes symptoms in low back. Overall, R hip less mobile than L hip. B hip IR more limited than B hip ER while in hip flexion, and R IR provokes symptoms in low back. PT-OP-G Mobility & Gait Start: 12/23/22 09:26 Freq: Status: Active Protocol: Document 12/23/22 09:27 NM (Rec: 12/23/22 11:11 NM [id number]) OP Gait Assessment Gait Gait Assistance Required: Independent Assistive Devices Assistive Device None Gait Deviations General Gait Pattern Antalgic,Flexed Trunk Factors Limiting Gait Function Factors Limiting Gait Function Decreased Sensation,Decreased Strength,Limited Range of Motion,Pain PT-OP-H Neuro Start: 12/23/22 09:26 Freq: Status: Active Protocol: Document 12/23/22 09:27 NM (Rec: 12/23/22 11:11 NM [id number]) Sensation Evaluation Gross Sensation Gross Sensation Right LE Impaired Dermatome Impairments L3,L4 Comments Summary Comments Decreased ability to detect light touch sensation in RLE, particularly in L3-L4 dermatomes. Vital Signs Blood Pressure Seated Blood Pressure (90/60-120/80 mmHg) 119/85 H Blood Pressure Source Automatic Cuff,Right Upper Extremity Comments Vital Signs Comments Baseline BP Pt reports high blood pressure normally PT-OP-J Posture/Palpation/Skin Start: 12/23/22 09:26 Freq: Status: Active Protocol: Document 12/23/22 09:27 NM (Rec: 12/23/22 11:11 NM [id number]) Posture Evaluation Position Standing Evaluation View anterior, posterior, and lateral Head/C-Spine Posture Flexed T-Spine Posture Increased Kyphosis Thorax Posture (L) Elevated L-Spine Posture Flattened Scapula Posture (L) Protracted,(L) Elevated Pelvis Posture Posterior Tilted Weight Distribution Weight Shifted Left,Decreased Wt.Bear on (R) Hip Posture (L) Externally Rotated,(R) Externally Rotated Palpation Assessment Location R SIJ Palpation Location sacral base Palpation Findings Tenderness Palpation Details Extreme tenderness at R sacral base, decreasing in severity as moving inferior toward R SHARIF PT-OP-K Range of Motion Start: 12/23/22 09:26 Freq: Status: Active Protocol: Document 12/23/22 09:27 NM (Rec: 12/23/22 11:11 NM [id number]) Lumbar Spine Range of Motion Lumbar Spine Active Degrees Testing Position Standing Flexion 10 Extension 15 Rotation Left 4 Rotation Right 4 Lateral Flexion Left 25 Lateral Flexion Right 25 Comments -Rotation measured in inches with tape measure. -Reports good stretching with lateral flexion -Pain with flexion and extension, extension is more provocative. -Pt unwilling to flex further due to fear of dizzy spell Hip Goniometric Range of Motion Hip Left Testing Position supine and sitting Comments Unable to formally assess due to time constraints. Will assess in next session. Right Hip ROM WFL No Testing Position sitting and supine Comments Unable to formally assess due to time constraints; will assess in next session. Observed limited R IR, also provoked symptoms in low back PT-OP-L Special Tests Start: 12/23/22 09:26 Freq: Status: Active Protocol: Document 12/23/22 09:27 NM (Rec: 12/23/22 11:11 NM [id number]) Special Tests Lumbar Spine Special Tests SIJ Sacral Thrust Test Results positive -R sacral base SIJ Gaenslen Test Results negative SIJ Sacral Springing Test Results Positive-R Comments reproduces symptoms at SIJ SIJ Thigh thrust Test Results positive -R Comments reproduces symptoms at SIJ SIJ Posterior Distraction Test Results negative SIJ Anterior Compression Test Results negative Straight Leg Raise Test Results positive -B Comments tension relieved with plantarflexion Slump Test Results positive-R, negative-L Comments positive tension sign on R side, improved with cervical extension Hernandez/Quadrant Test Results positive- B Comments reproduced symptoms Hip Special Tests Anterior Labral Test Test Results negative -R Comments no clicking/locking, but does provoke pain in R hip and low back Will Test Results negative - B PT-OP-M Strength Start: 12/23/22 09:26 Freq: Status: Active Protocol: Document 12/23/22 09:27 NM (Rec: 12/23/22 11:11 NM [id number]) Trunk Strength Trunk Manual Muscle Testing Testing Position standing Flexion 3+ Fair+ Extension 3+ Fair+ Rotation Left 4 Good Rotation Right 4 Good Lateral Flexion Left 4 Good Lateral Flexion Right 4 Good Comments pain with flexion and extension, able to withstand min resistance Hip Strength Hip Manual Muscle Testing Left Flexion (L2) 4 Good Extension (S1) 4 Good Abduction 4- Good- Adduction 4 Good External Rotation 4 Good Internal Rotation 4- Good- Right Flexion (L2) 4 Good Extension (S1) 4- Good- Abduction 4- Good- Adduction 4- Good- External Rotation 4- Good- Internal Rotation 4- Good- PT-OP-Q Treatments Start: 12/23/22 09:26 Freq: Status: Active Protocol: Document 12/29/22 13:01 NM (Rec: 12/29/22 13:43 NM [id number]) Therapeutic Exercises Supine Exercises KTC Supine Exercise Name 1. gentle ROM, 2. stretch Side bilateral Equipment Used 1 set without SB, 1 set with SB Reps/Minutes 2x15, 2x30 Comments 1. feels engaged, 2. stretch LTR Equipment Used orange SB Reps/Minutes 2x30 Comments for LBP reduction, calming 90/90 spinal decompression Side bilateral Equipment Used orange SB Reps/Minutes 3x30 Comments spinal decompression, traction , calming piriformis stretch Comments next time --> attempt figure four Bridge + ADD Side bilateral Equipment Used pillow between legs Reps/Minutes 2x20, 5 yessy at top of range Comments cues for glute activation, to lift hips Prone Exercises Child's pose Side bilateral Reps/Minutes 2x30 Comments feels good Prone on elbows Prone Exercise Name for hip flexor stretch, low back stretch Reps/Minutes 1' Comments good stretch low back hip extension Prone Exercise Name in prone on elbows Side bilateral Reps/Minutes 2x10 ea Comments R hip pain with L LE extension at end of 2nd set Sidelying Exercises Hip ADD Side bilateral Reps/Minutes x10 Comments tolerate well, perform next time Hip abduction Side bilateral Reps/Minutes 3x10, 3 Comments cues for heel up/toe down Sitting Exercises Hamstring Stretch Side bilateral Reps/Minutes multiple times x30 Comments Pt moves into this position regularly throughout session Other Exercises Cat Cow Side bilateral Reps/Minutes x20 Comments for spinal mobility; limited extension ROM PT-OP-T Assessment and Plan Start: 12/23/22 09:26 Freq: Status: Active Protocol: Document 12/29/22 13:01 NM (Rec: 12/29/22 13:43 NM [id number]) Physical Therapy Assessment Impairments Impairments Activity Tolerance,Balance, Functional Activities, Functional Mobility,Gait,Pain, Posture,ROM,Sensation,Soft Tissue Mobility,Strength, Transfers Other Impairments Positional changes Goals Five Impairment strength Impairment R hip strength globally 4-/5 Short Term Goal (STG) Pt will maintain R hip strength (abd, flex, ext) to at least 4/5 for better stability and endurance during gait for errands. STG Duration 3 weeks Fdc Goal (LTG) Pt will improve R hip strength (abd, flex, ext) to at least 4/5 for better stability and endurance during gait and community-based activities. LTG Duration 6 weeks Four Impairment ROM Impairment Trunk flexion ROM 10 deg, extension ROM 15 deg Short Term Goal (STG) Pt will improve trunk ROM at least 3 degrees in order to demonstrate improved functional mobility, pain and activity tolerance, and to be able to don/doff shoes and pick objects from a lower level. STG Duration 3 weeks Fdc Goal (LTG) Pt will improve trunk ROM by at least 5 degrees in order to demonstrate improved functional mobility, pain and activity tolerance, and to be able to don/doff shoes and milk pickup driver objects from a lower level. LTG Duration 6 week Three Impairment strength, balance Impairment Pt is unable to perform R SLS without LOB, compensations, and pain Short Term Goal (STG) Pt will be able to perform SLS on RLE for at least 10 seconds without compensations to show improved LE strength and balance. STG Duration 3 weeks Tearer Goal (LTG) Pt will be able to perform SLS on RLE for at least 20 seconds without compensations to show improved LE strength, pelvic stability, and balance. LTG Duration 6 weeks Two Impairment pain, function Impairment Oswestry score 11/50 Short Term Goal (STG) Pt will improve Oswestry score by at least 3 points (half MCID) in order to demonstrate improved strength and activity tolerance. STG Duration 3 weeks Tearer Goal (LTG) Pt will improve Oswestry score by at least 6 points (MCID) in order to demonstrate improved strength, activity tolerance, and pain management . LTG Duration 6 weeks One Impairment function, gait Impairment Pt unable to ambulate at community distances without taking a break Short Term Goal (STG) Pt will be able to complete a 6 MWT with 2 or fewer seated breaks, ambulating at least 200m (community distance) in order to demonstrate improved activity tolerance and pain management in order to integrate better into the community. STG Duration 3 weeks Fdc Goal (LTG) Pt will be able to complete a 6 MWT with 1 or fewer seated breaks, ambulating at least 200m (community distance) in order to demonstrate improved activity tolerance and pain management to be able to perform errands. LTG Duration 6 weeks Assessment Summary Assessment Pt tolerated treatment well and is demonstrating improvements in activity tolerance and hip strength. Nerve mobilizations not helpful in last session and will not be continued at this time. Pt tolerates flexion- biased spine exercises well, and she is able to tolerate enough extension to lie prone/ on elbows but not to press up. Progressed hip strengthening and will continue with glute strengthening. Pt enjoys stretching low back in spinal flexion and extension, reporting that it is most helpful. HEP updated: sidelying hip ADD and ABD, double knee to chest stretch, and a walking program (5-15 mi /day per tolerance). Pt would benefit from skilled PT to improve BLE/trunk weakness, spinal ROM, and to improve activity tolerance. Physical Therapy Plan Frequency and Duration Frequency of Treatment 2x/Week Duration of treatment (weeks) 6 Plan of Care Start Date 12/22/22 Plan of Care End Date 02/02/23 Next Visit Focus/Plan Next Note Type Treatment Note Next Visit Plan Core, trunk strengthening. Focus on endurance.
--- NOTE | 2022-12-31 13:22 | PT-OP ANOTE ---
No show appt - PT called and talked to pt. Pt has a migraine today and is not leaving the house. She reports pain in R low back in a band pattern near waistline beginning today. Discussed with pt to call her doctor if it worsens.
--- NOTE | 2023-01-19 13:44 | PT.OTN ---
Current Diagnoses Spondylosis without myelopathy or radiculopathy, lumbar region (01/19/23) Sacrococcygeal disorders, not elsewhere classified (01/19/23) Weakness (01/19/23) Physical Therapy Treatment Note PT-OP-A Visit Information Start: 12/23/22 09:26 Freq: Status: Active Protocol: Document 01/19/23 13:07 NM (Rec: 01/19/23 13:44 NM [id number]) Out-Patient Physical Therapy Visit Information Visit Information Visit Type Treatment Note Visit Start Time 13:05 Visit Stop Time 13:15 Total Visit Minutes 40 Visit Number 4 Evaluation Information Evaluation Date 12/23/22 Precautions Precautions Pt has tendency for dizzy spells, especially when changing positions. 1. allow for adequate time to change positions, especially sit > stand 2. Take vitals (blood pressure ) and have pt check blood glucose level 3. Colostomy bag PT-OP-B Current Condition Start: 12/23/22 09:26 Freq: Status: Active Protocol: Document 12/23/22 09:27 NM (Rec: 12/23/22 11:11 NM [id number]) Current Condition History of Current Condition Onset Date 12/2021 Current Complaints pain in low back and R hip, sensation changes, weakness History of Current Condition Pt presents to PT with a hx of low back pain and R hip pain beginning in 12/2021. Pt reports that she rolled her R ankle while walking in the sand in 11/2021, but continued to ambulate on her ankle for about a month before being placed in a walking boot; she believes that she performed movement compensations to avoid ankle pain during gait in that month interval, which led to the pain in her low back and hip. Currently, pt is experiencing trunk and RLE weakness, pain, difficulty ambulating more than 1 block, difficulty with position changes, difficulty with flexing her trunk, and activity tolerance. Overall, pt is largely sedentary. She reports that she has numbness/ tingling in her RLE similar to restless leg syndrome and occasionally her RLE feels like it will give out. Pt reports only one fall, but she was able to catch herself and lower carefully to the ground . This is further complicated by dizzy spells that occur with quick changes in position and forward flexion as if to wall mirror department supervisor an object from the ground; she is seeking care to determine the cause and currently suspects dehydration or blood glucose management. She has a PMH of diabetes mellitus, Crohn's, and hypertension. She also underwent surgery for pancreatitis in 10/2022. Prior Treatments and Tests Last orthopedic appt 10/2022 Treatment Goals Patient/Caregiver Goals To increase activity level, decrease low back and R hip pain Prior Functional Status Baseline Function- ADL's Independent Baseline Function- Mobility Independent Baseline Function- Gait no AD Current Functional Impairments (Reported) Functional Limitations- Mobility/Gait Only able to ambulate up to 1 block, no AD Personal Factors Other Personal Factors That May Effect Management of concurrent Therapy/Recovery health conditions: Crohn's, diabetes mellitus, blood pressure, pancreatitis PT-OP-C Subjective Start: 12/23/22 09:26 Freq: Status: Active Protocol: Document 01/19/23 13:07 NM (Rec: 01/19/23 13:44 NM [id number]) OP-PT Subjective Patient Comments Patient Comments Pt reports 2/10 back pain, stabbing/throbbing 3/10 R SIJ pain. She reports minimal compliance with HEP. She has recently updated her depression medication, which seems to be helping. She will also be changing several medications in the upcoming weeks. PT-OP-D Balance Start: 12/23/22 09:26 Freq: Status: Active Protocol: Document 12/23/22 09:27 NM (Rec: 12/23/22 11:11 NM [id number]) OP-PT Balance Assessment Sitting Balance Static Sitting Balance Ability Normal Standing Balance Static Standing Balance Ability Normal Dynamic Standing Balance Ability Good Balance Tests Single Limb Standing Single Limb- Right 2 sec; compensates by placing foot on LLE; provokes symptoms in low back Single Limb- Left 20 sec before LOB Marshall Fall Scale Copyright Permission PT-OP-F Manual Assessment Start: 12/23/22 09:26 Freq: Status: Active Protocol: Document 12/23/22 09:27 NM (Rec: 12/23/22 11:11 NM [id number]) Manual Assessments Soft Tissue Assessment Soft Tissue Mobility Assessment Muscle guarding in lumbar spine along paraspinals. No tenderness at B piriformis or other gluteal muscles, proximal insertion of hamstrings. No tenderness or pain provoked at hip flexors or lateral hip muscles. Joint Mobility Assessment Joint Mobility Assessment Hypomobile R SIJ with P-A springing. Lumbosacral spine ( L1-L5) normal mobility with P- A springing, S1-S2 more hypomobile and provokes symptoms in low back. Overall, R hip less mobile than L hip. B hip IR more limited than B hip ER while in hip flexion, and R IR provokes symptoms in low back. PT-OP-G Mobility & Gait Start: 12/23/22 09:26 Freq: Status: Active Protocol: Document 12/23/22 09:27 NM (Rec: 12/23/22 11:11 NM [id number]) OP Gait Assessment Gait Gait Assistance Required: Independent Assistive Devices Assistive Device None Gait Deviations General Gait Pattern Antalgic,Flexed Trunk Factors Limiting Gait Function Factors Limiting Gait Function Decreased Sensation,Decreased Strength,Limited Range of Motion,Pain PT-OP-H Neuro Start: 12/23/22 09:26 Freq: Status: Active Protocol: Document 12/23/22 09:27 NM (Rec: 12/23/22 11:11 NM [id number]) Sensation Evaluation Gross Sensation Gross Sensation Right LE Impaired Dermatome Impairments L3,L4 Comments Summary Comments Decreased ability to detect light touch sensation in RLE, particularly in L3-L4 dermatomes. Vital Signs Blood Pressure Seated Blood Pressure (90/60-120/80 mmHg) 119/85 H Blood Pressure Source Automatic Cuff,Right Upper Extremity Comments Vital Signs Comments Baseline BP Pt reports high blood pressure normally PT-OP-J Posture/Palpation/Skin Start: 12/23/22 09:26 Freq: Status: Active Protocol: Document 12/23/22 09:27 NM (Rec: 12/23/22 11:11 NM [id number]) Posture Evaluation Position Standing Evaluation View anterior, posterior, and lateral Head/C-Spine Posture Flexed T-Spine Posture Increased Kyphosis Thorax Posture (L) Elevated L-Spine Posture Flattened Scapula Posture (L) Protracted,(L) Elevated Pelvis Posture Posterior Tilted Weight Distribution Weight Shifted Left,Decreased Wt.Bear on (R) Hip Posture (L) Externally Rotated,(R) Externally Rotated Palpation Assessment Location R SIJ Palpation Location sacral base Palpation Findings Tenderness Palpation Details Extreme tenderness at R sacral base, decreasing in severity as moving inferior toward R SHARIF PT-OP-K Range of Motion Start: 12/23/22 09:26 Freq: Status: Active Protocol: Document 12/23/22 09:27 NM (Rec: 12/23/22 11:11 NM [id number]) Lumbar Spine Range of Motion Lumbar Spine Active Degrees Testing Position Standing Flexion 10 Extension 15 Rotation Left 4 Rotation Right 4 Lateral Flexion Left 25 Lateral Flexion Right 25 Comments -Rotation measured in inches with tape measure. -Reports good stretching with lateral flexion -Pain with flexion and extension, extension is more provocative. -Pt unwilling to flex further due to fear of dizzy spell Hip Goniometric Range of Motion Hip Left Testing Position supine and sitting Comments Unable to formally assess due to time constraints. Will assess in next session. Right Hip ROM WFL No Testing Position sitting and supine Comments Unable to formally assess due to time constraints; will assess in next session. Observed limited R IR, also provoked symptoms in low back PT-OP-L Special Tests Start: 12/23/22 09:26 Freq: Status: Active Protocol: Document 12/23/22 09:27 NM (Rec: 12/23/22 11:11 NM [id number]) Special Tests Lumbar Spine Special Tests SIJ Sacral Thrust Test Results positive -R sacral base SIJ Gaenslen Test Results negative SIJ Sacral Springing Test Results Positive-R Comments reproduces symptoms at SIJ SIJ Thigh thrust Test Results positive -R Comments reproduces symptoms at SIJ SIJ Posterior Distraction Test Results negative SIJ Anterior Compression Test Results negative Straight Leg Raise Test Results positive -B Comments tension relieved with plantarflexion Slump Test Results positive-R, negative-L Comments positive tension sign on R side, improved with cervical extension Hernandez/Quadrant Test Results positive- B Comments reproduced symptoms Hip Special Tests Anterior Labral Test Test Results negative -R Comments no clicking/locking, but does provoke pain in R hip and low back Will Test Results negative - B PT-OP-M Strength Start: 12/23/22 09:26 Freq: Status: Active Protocol: Document 12/23/22 09:27 NM (Rec: 12/23/22 11:11 NM [id number]) Trunk Strength Trunk Manual Muscle Testing Testing Position standing Flexion 3+ Fair+ Extension 3+ Fair+ Rotation Left 4 Good Rotation Right 4 Good Lateral Flexion Left 4 Good Lateral Flexion Right 4 Good Comments pain with flexion and extension, able to withstand min resistance Hip Strength Hip Manual Muscle Testing Left Flexion (L2) 4 Good Extension (S1) 4 Good Abduction 4- Good- Adduction 4 Good External Rotation 4 Good Internal Rotation 4- Good- Right Flexion (L2) 4 Good Extension (S1) 4- Good- Abduction 4- Good- Adduction 4- Good- External Rotation 4- Good- Internal Rotation 4- Good- PT-OP-Q Treatments Start: 12/23/22 09:26 Freq: Status: Active Protocol: Document 01/19/23 13:07 NM (Rec: 01/19/23 13:44 NM [id number]) Therapeutic Exercises Supine Exercises LTR Side bilateral Equipment Used hooklying Reps/Minutes 1x60 Comments for LBP reduction, gentle L spine stretch BKFO Side bilateral Reps/Minutes 2x10 Comments hip add stretch, improved tolerance Bridge + ADD Side bilateral Equipment Used small towel between legs Reps/Minutes 2x20x3 Comments cues for ppt + glute activation, not segmental motion Prone Exercises modified plank Prone Exercise Name trialed today> R SIJ pain Child's pose Side bilateral Reps/Minutes 60 Sitting Exercises Self-mobilization Sitting Exercise Name 1. piriformis, 2. obturator internus Side bilateral Equipment Used Datapipe ball Reps/Minutes x8 ea Comments 1. hip ER+flex, 2. hip flex Hip ext and abd Side bilateral Resistance yellow band (easy) Equipment Used yellow band around ankles Reps/Minutes 1x8 Comments cues for core contraction, upright posture Hamstring Stretch Sitting Exercise Name progressed to standing for better stretch Side bilateral Reps/Minutes 2x30 Comments standing at stairs Manual Therapy Treatment Nerve Glides Sciatic Body Position Sitting Reps/Duration 10 ea leg Comments reports relief but hamstring tightness PT-OP-T Assessment and Plan Start: 12/23/22 09:26 Freq: Status: Active Protocol: Document 01/19/23 13:07 NM (Rec: 01/19/23 13:44 NM [id number]) Physical Therapy Assessment Rehab Potential Rehabilitation Potential Good Evaluation Complexity Number of Personal Factors/Comorbidities 3 or More Number of Body Systems Impaired 3 Clinical Presentation at Evaluation Evolving Impairments Impairments Activity Tolerance,Balance, Functional Activities, Functional Mobility,Gait,Pain, Posture,ROM,Sensation,Soft Tissue Mobility,Strength, Transfers Other Impairments Positional changes Other Concerns Fall Risk moderate Barriers to Rehabilitation Concurrent health concerns: recent pancreatitis or Crohn's exacerbation; pt is also currently in the process of changing her insulin distributor for her diabetes Goals Five Impairment strength Impairment R hip strength globally 4-/5 Short Term Goal (STG) Pt will maintain R hip strength (abd, flex, ext) to at least 4/5 for better stability and endurance during gait for errands. STG Duration 3 weeks [facility] Goal (LTG) Pt will improve R hip strength (abd, flex, ext) to at least 4/5 for better stability and endurance during gait and community-based activities. LTG Duration 6 weeks Four Impairment ROM Impairment Trunk flexion ROM 10 deg, extension ROM 15 deg Short Term Goal (STG) Pt will improve trunk ROM at least 3 degrees in order to demonstrate improved functional mobility, pain and activity tolerance, and to be able to don/doff shoes and pick objects from a lower level. STG Duration 3 weeks [employer] Goal (LTG) Pt will improve trunk ROM by at least 5 degrees in order to demonstrate improved functional mobility, pain and activity tolerance, and to be able to don/doff shoes and wall mirror department supervisor objects from a lower level. LTG Duration 6 week Three Impairment strength, balance Impairment Pt is unable to perform R SLS without LOB, compensations, and pain Short Term Goal (STG) Pt will be able to perform SLS on RLE for at least 10 seconds without compensations to show improved LE strength and balance. STG Duration 3 weeks [facility] Goal (LTG) Pt will be able to perform SLS on RLE for at least 20 seconds without compensations to show improved LE strength, pelvic stability, and balance. LTG Duration 6 weeks Two Impairment pain, function Impairment Oswestry score 11/50 Short Term Goal (STG) Pt will improve Oswestry score by at least 3 points (half MCID) in order to demonstrate improved strength and activity tolerance. STG Duration 3 weeks [employer] Goal (LTG) Pt will improve Oswestry score by at least 6 points (MCID) in order to demonstrate improved strength, activity tolerance, and pain management . LTG Duration 6 weeks One Impairment function, gait Impairment Pt unable to ambulate at community distances without taking a break Short Term Goal (STG) Pt will be able to complete a 6 MWT with 2 or fewer seated breaks, ambulating at least 200m (community distance) in order to demonstrate improved activity tolerance and pain management in order to integrate better into the community. STG Duration 3 weeks [employer] Goal (LTG) Pt will be able to complete a 6 MWT with 1 or fewer seated breaks, ambulating at least 200m (community distance) in order to demonstrate improved activity tolerance and pain management to be able to perform errands. LTG Duration 6 weeks Assessment Summary Assessment Pt tolerated session well and has decreased low back pain since beginning of session. Her R SIJ pain is worse with any lumbar ext, but improves with sciatic nerve glide and bridge with hip ADD. She fatigues easily, which impacts how much activity she can tolerate in sessions and at home. She has difficulty with stabilizing her core during multi-step activities (e.g bridges), which reproduces her low back pain at time. Pt would benefit from skilled PT to improve BLE/trunk weakness, spinal ROM, and to improve activity tolerance. Physical Therapy Plan Frequency and Duration Frequency of Treatment 2x/Week Duration of treatment (weeks) 6 Plan of Care Start Date 12/22/22 Plan of Care End Date 02/02/23 Therapeutic Interventions Therapeutic Interventions Balance Training,Coordination Training,Gait Training,Home Exercise Program,Joint Mobilizations,Manual Therapy, Neuromuscular Re-education, Patient/Caregiver Education, Self-Care/Home Management, Sensory Integration,Soft Tissue Mobilization,Taping, Therapeutic Activities, Therapeutic Exercises Modalities Cold Pack/Ice Massage,Electric Stimulation,Hot Packs, Traction- Mechanical, Ultrasound Other Therapeutic Interventions Muscle-energy techniques Next Visit Focus/Plan Next Note Type Progress Note Next Visit Plan Core, trunk strengthening. Focus on endurance.
--- NOTE | 2023-01-21 15:50 | PT-OP ANOTE ---
Cancellation - Pt called front of house manager during appt to cancel as she does not have any colostomy bags today, so unable to attend.
--- NOTE | 2023-01-27 13:59 | PT-OP ANOTE ---
NO SHOW- PT called pt and left a voicemail at 13:59 as pt confirmed appt but did not attend. In voicemail, PT informed pt that she is not in compliance with the attendance policy (2 no shows, 6 cancelations since IE, only attended 3 appt). Pt informed that she will be discharged from PT for non-attendance. Her POC is set to on 02/02/23.
--- NOTE | 2023-02-02 08:07 | PT.OPDS ---
Current Diagnoses Spondylosis without myelopathy or radiculopathy, lumbar region (01/19/23) Sacrococcygeal disorders, not elsewhere classified (01/19/23) Weakness (01/19/23) Visit Care Team Role Provider Type Melissa Smith DO Family Provider Physician Primary Care Provider Specialty: Family Practice Address: [address] [place] [address], [facility] [address], [place], [address] Email: [email or web address] Raza Maurice MD Attending Provider Physician Referring Provider Specialty: Orthopedics Orthopedic Surgery Address: [address] [place] [address], [address] Email: [email or web address] Visit Number Visit Number 4 Discharge Summary PT-OP-B Current Condition Start: 12/23/22 09:26 Freq: Status: Active Protocol: Document 12/23/22 09:27 NM (Rec: 12/23/22 11:11 NM [id number]) Current Condition History of Current Condition Onset Date 12/2021 Current Complaints pain in low back and R hip, sensation changes, weakness History of Current Condition Pt presents to PT with a hx of low back pain and R hip pain beginning in 12/2021. Pt reports that she rolled her R ankle while walking in the sand in 11/2021, but continued to ambulate on her ankle for about a month before being placed in a walking boot; she believes that she performed movement compensations to avoid ankle pain during gait in that month interval, which led to the pain in her low back and hip. Currently, pt is experiencing trunk and RLE weakness, pain, difficulty ambulating more than 1 block, difficulty with position changes, difficulty with flexing her trunk, and activity tolerance. Overall, pt is largely sedentary. She reports that she has numbness/ tingling in her RLE similar to restless leg syndrome and occasionally her RLE feels like it will give out. Pt reports only one fall, but she was able to catch herself and lower carefully to the ground . This is further complicated by dizzy spells that occur with quick changes in position and forward flexion as if to picker an object from the ground; she is seeking care to determine the cause and currently suspects dehydration or blood glucose management. She has a PMH of diabetes mellitus, Crohn's, and hypertension. She also underwent surgery for pancreatitis in 10/2022. Prior Treatments and Tests Last orthopedic appt 10/2022 Treatment Goals Patient/Caregiver Goals To increase activity level, decrease low back and R hip pain Prior Functional Status Baseline Function- ADL's Independent Baseline Function- Mobility Independent Baseline Function- Gait no AD Current Functional Impairments (Reported) Functional Limitations- Mobility/Gait Only able to ambulate up to 1 block, no AD Personal Factors Other Personal Factors That May Effect Management of concurrent Therapy/Recovery health conditions: Crohn's, diabetes mellitus, blood pressure, pancreatitis PT-OP-C Subjective Start: 12/23/22 09:26 Freq: Status: Active Protocol: Document 01/19/23 13:07 NM (Rec: 01/19/23 13:44 NM [id number]) OP-PT Subjective Patient Comments Patient Comments Pt reports 2/10 back pain, stabbing/throbbing 3/10 R SIJ pain. She reports minimal compliance with HEP. She has recently updated her depression medication, which seems to be helping. She will also be changing several medications in the upcoming weeks. PT-OP-D Balance Start: 12/23/22:26 Freq: Status: Active Protocol: Document 12/23/22 09:27 NM (Rec: 12/23/22 11:11 NM [id number]) OP-PT Balance Assessment Sitting Balance Static Sitting Balance Ability Normal Standing Balance Static Standing Balance Ability Normal Dynamic Standing Balance Ability Good Balance Tests Single Limb Standing Single Limb- Right 2 sec; compensates by placing foot on LLE; provokes symptoms in low back Single Limb- Left 20 sec before LOB Marshall Fall Scale Copyright Permission PT-OP-F Manual Assessment Start: 12/23/22 09:26 Freq: Status: Active Protocol: Document 12/23/22 09:27 NM (Rec: 12/23/22 11:11 NM [id number]) Manual Assessments Soft Tissue Assessment Soft Tissue Mobility Assessment Muscle guarding in lumbar spine along paraspinals. No tenderness at B piriformis or other gluteal muscles, proximal insertion of hamstrings. No tenderness or pain provoked at hip flexors or lateral hip muscles. Joint Mobility Assessment Joint Mobility Assessment Hypomobile R SIJ with P-A springing. Lumbosacral spine ( L1-L5) normal mobility with P- A springing, S1-S2 more hypomobile and provokes symptoms in low back. Overall, R hip less mobile than L hip. B hip IR more limited than B hip ER while in hip flexion, and R IR provokes symptoms in low back. PT-OP-G Mobility & Gait Start: 12/23/22 09:26 Freq: Status: Active Protocol: Document 12/23/22 09:27 NM (Rec: 12/23/22 11:11 NM [id number]) OP Gait Assessment Gait Gait Assistance Required: Independent Assistive Devices Assistive Device None Gait Deviations General Gait Pattern Antalgic,Flexed Trunk Factors Limiting Gait Function Factors Limiting Gait Function Decreased Sensation,Decreased Strength,Limited Range of Motion,Pain PT-OP-H Neuro Start: 12/23/22 09:26 Freq: Status: Active Protocol: Document 12/23/22 09:27 NM (Rec: 12/23/22 11:11 NM [id number]) Sensation Evaluation Gross Sensation Gross Sensation Right LE Impaired Dermatome Impairments L3,L4 Comments Summary Comments Decreased ability to detect light touch sensation in RLE, particularly in L3-L4 dermatomes. Vital Signs Blood Pressure Seated Blood Pressure (90/60-120/80 mmHg) 119/85 H Blood Pressure Source Automatic Cuff,Right Upper Extremity Comments Vital Signs Comments Baseline BP Pt reports high blood pressure normally PT-OP-J Posture/Palpation/Skin Start: 12/23/22 09:26 Freq: Status: Active Protocol: Document 12/23/22 09:27 NM (Rec: 12/23/22 11:11 NM [id number]) Posture Evaluation Position Standing Evaluation View anterior, posterior, and lateral Head/C-Spine Posture Flexed T-Spine Posture Increased Kyphosis Thorax Posture (L) Elevated L-Spine Posture Flattened Scapula Posture (L) Protracted,(L) Elevated Pelvis Posture Posterior Tilted Weight Distribution Weight Shifted Left,Decreased Wt.Bear on (R) Hip Posture (L) Externally Rotated,(R) Externally Rotated Palpation Assessment Location R SIJ Palpation Location sacral base Palpation Findings Tenderness Palpation Details Extreme tenderness at R sacral base, decreasing in severity as moving inferior toward R SHARIF PT-OP-K Range of Motion Start: 12/23/22 09:26 Freq: Status: Active Protocol: Document 12/23/22 09:27 NM (Rec: 12/23/22 11:11 NM [id number]) Lumbar Spine Range of Motion Lumbar Spine Active Degrees Testing Position Standing Flexion 10 Extension 15 Rotation Left 4 Rotation Right 4 Lateral Flexion Left 25 Lateral Flexion Right 25 Comments -Rotation measured in inches with tape measure. -Reports good stretching with lateral flexion -Pain with flexion and extension, extension is more provocative. -Pt unwilling to flex further due to fear of dizzy spell Hip Goniometric Range of Motion Hip Left Testing Position supine and sitting Comments Unable to formally assess due to time constraints. Will assess in next session. Right Hip ROM WFL No Testing Position sitting and supine Comments Unable to formally assess due to time constraints; will assess in next session. Observed limited R IR, also provoked symptoms in low back PT-OP-L Special Tests Start: 12/23/22 09:26 Freq: Status: Active Protocol: Document 12/23/22 09:27 NM (Rec: 12/23/22 11:11 NM [id number]) Special Tests Lumbar Spine Special Tests SIJ Sacral Thrust Test Results positive -R sacral base SIJ Gaenslen Test Results negative SIJ Sacral Springing Test Results Positive-R Comments reproduces symptoms at SIJ SIJ Thigh thrust Test Results positive -R Comments reproduces symptoms at SIJ SIJ Posterior Distraction Test Results negative SIJ Anterior Compression Test Results negative Straight Leg Raise Test Results positive -B Comments tension relieved with plantarflexion Slump Test Results positive-R, negative-L Comments positive tension sign on R side, improved with cervical extension Hernandez/Quadrant Test Results positive- B Comments reproduced symptoms Hip Special Tests Anterior Labral Test Test Results negative -R Comments no clicking/locking, but does provoke pain in R hip and low back Will Test Results negative - B PT-OP-M Strength Start: 12/23/22 09:26 Freq: Status: Active Protocol: Document 12/23/22 09:27 NM (Rec: 12/23/22 11:11 NM [id number]) Trunk Strength Trunk Manual Muscle Testing Testing Position standing Flexion 3+ Fair+ Extension 3+ Fair+ Rotation Left 4 Good Rotation Right 4 Good Lateral Flexion Left 4 Good Lateral Flexion Right 4 Good Comments pain with flexion and extension, able to withstand min resistance Hip Strength Hip Manual Muscle Testing Left Flexion (L2) 4 Good Extension (S1) 4 Good Abduction 4- Good- Adduction 4 Good External Rotation 4 Good Internal Rotation 4- Good- Right Flexion (L2) 4 Good Extension (S1) 4- Good- Abduction 4- Good- Adduction 4- Good- External Rotation 4- Good- Internal Rotation 4- Good- PT-OP-T Assessment and Plan Start: 12/23/22 09:26 Freq: Status: Active Protocol: Document 02/02/23 07:55 NM (Rec: 02/02/23 08:06 NM [id number]) Physical Therapy Assessment Goals Five Impairment strength Impairment R hip strength globally 4-/5 Short Term Goal (STG) Pt will maintain R hip strength (abd, flex, ext) to at least 4/5 for better stability and endurance during gait for errands. STG Duration 3 weeks Cna Gna Goal (LTG) Pt will improve R hip strength (abd, flex, ext) to at least 4/5 for better stability and endurance during gait and community-based activities. LTG Duration 6 weeks NOT MET Four Impairment ROM Impairment Trunk flexion ROM 10 deg, extension ROM 15 deg Short Term Goal (STG) Pt will improve trunk ROM at least 3 degrees in order to demonstrate improved functional mobility, pain and activity tolerance, and to be able to don/doff shoes and pick objects from a lower level. STG Duration 3 weeks Penitentiary Goal (LTG) Pt will improve trunk ROM by at least 5 degrees in order to demonstrate improved functional mobility, pain and activity tolerance, and to be able to don/doff shoes and picker objects from a lower level. LTG Duration 6 week NOT MET Three Impairment strength, balance Impairment Pt is unable to perform R SLS without LOB, compensations, and pain Short Term Goal (STG) Pt will be able to perform SLS on RLE for at least 10 seconds without compensations to show improved LE strength and balance. STG Duration 3 weeks Cna Gna Goal (LTG) Pt will be able to perform SLS on RLE for at least 20 seconds without compensations to show improved LE strength, pelvic stability, and balance. LTG Duration 6 weeks NOT MET Two Impairment pain, function Impairment Oswestry score 11/50 Short Term Goal (STG) Pt will improve Oswestry score by at least 3 points (half MCID) in order to demonstrate improved strength and activity tolerance. STG Duration 3 weeks Cna Gna Goal (LTG) Pt will improve Oswestry score by at least 6 points (MCID) in order to demonstrate improved strength, activity tolerance, and pain management . LTG Duration 6 weeks NOT MET One Impairment function, gait Impairment Pt unable to ambulate at community distances without taking a break Short Term Goal (STG) Pt will be able to complete a 6 MWT with 2 or fewer seated breaks, ambulating at least 200m (community distance) in order to demonstrate improved activity tolerance and pain management in order to integrate better into the community. STG Duration 3 weeks Penitentiary Goal (LTG) Pt will be able to complete a 6 MWT with 1 or fewer seated breaks, ambulating at least 200m (community distance) in order to demonstrate improved activity tolerance and pain management to be able to perform errands. LTG Duration 6 weeks NOT MET Progress Towards Goals Progress Towards Goals Slow Progress due to Activity Tolerance,Slow Progress due to Attendance Issues,Slow Progress due to Noncompliance Assessment Summary Assessment Pt was evaluated on 12/22/22 for low back pain and R hip pain. She has attended 3 sessions, but she did not make any progress toward LTG due to poor attendance. Pt is not in compliance with clinic attendance policy. She has canceled 6 appointments since IE and no showed to 2 appts without notice or rescheduling more appts. At pt's last appt on 01/19, PT and pt reviewed attendance policy and discussed that pt would be discharged from OP PT services if pt did not attend any more sessions; pt verbalized agreement. Pt then confirmed but did not attend her appt on 01/27. PT left pt a voicemail informing pt that she would be discharged for non- attendance, which pt did not attempt to reschedule or respond to voicemail. Pt instructed to follow up with PCP if symptoms change or worsen. Physical Therapy Plan Discharge Physical Therapy Discharge Reasons No Longer Attending PT Discharge Comments Pt not in compliance with attendance policy. Has canceled or no-showed 8 appointments without rescheduling and only attended 3 appts since IE. Next Visit Focus/Plan Next Visit Plan Discharge from PT services
== END 2023-02-02 12:38 | disposition home or self-care (01) ==
LOC: PHYS 13:00
PROVIDERS: Family Provider Family Medicine; PCP Family Medicine; Referring Provider Physical Medicine & Rehabilitation; Visit Provider Physical Medicine & Rehabilitation
DX: M47.816 Spondylosis without myelopathy or radiculopathy, lumbar region (principal); M53.3 Sacrococcygeal disorders, not elsewhere classified; R53.1 Weakness
CPT/HCPCS: 97110; 97140; 97162

== ENCOUNTER → 2023-04-09 11:24 | Outpatient (CLI) | payer OTHER, MEDICAID, SELFPAY ==
[2023-04-09 11:53] LABS: Appearance Urine UA CLOUDY; Bilirubin Urine UA NEGATIVE (NEGATIVE); Color Urine UA BROWN; Glucose Urine UA 3+ g/dL (Negative); Ketones Urine UA NEGATIVE (NEGATIVE); Leukocyte Esterase Urine UA NEGATIVE (NEGATIVE); Nitrite Urine UA NEGATIVE (Negative); Occult Blood Urine UA 3+ (Negative); Protein Urine UA TRACE (Negative); Specific Gravity Urine UA 1.015 (1.000-1.035); Urobilinogen Urine UA 0.2 E.U./dL (0.2)
[2023-04-09 11:56] LABS: pH Urine UA 5.5 (4.5-8.0)
[2023-04-09 12:00] LABS: Bacteria Urine None Seen; Culture Indicated Urine Specimen Cultured; RBC Urine >100/HPF (0-5/HPF); Squamous Epithelial Cell Urine None Seen (0-5/HPF); Urine Volume 10mL (spun); WBC Urine 5-10/HPF (0-5/HPF)
== END ==
PROVIDERS: Family Provider Family Medicine; PCP Family Medicine; Visit Provider Nurse Practitioner Family
DX: R30.0 Dysuria (principal); N94.9 Unspecified condition associated with female genital organs and menstrual cycle
CPT/HCPCS: 81001; 81002; 87086; 87210

== ENCOUNTER → 2023-06-20 14:27 | Outpatient (CLI) | payer OTHER, MEDICAID, SELFPAY | PROVIDERS: Family Provider Family Medicine; PCP Family Medicine; Visit Provider Nurse Practitioner Family | DX: R30.0 Dysuria (principal) | CPT/HCPCS: 87086; 87210 ==

== ENCOUNTER → 2023-09-07 16:14 | Outpatient (CLI) | payer OTHER, MEDICAID, SELFPAY | PROVIDERS: Family Provider Family Medicine; PCP Family Medicine; Referring Provider Student in an Organized Health Care Education/Training Program; Visit Provider Student in an Organized Health Care Education/Training Program | DX: R30.0 Dysuria (principal) | CPT/HCPCS: 87086 ==

== ENCOUNTER 2023-09-07 17:00 | Emergency (ER) | payer OTHER, MEDICAID, SELFPAY ==
[2023-09-07] VITALS (10 sets, daily range): BP systolic 140–166; BP diastolic 85–103; PULSE 85–103; RESP 14–24; TEMP 36.7; O2SAT 91–97; BMI 28.8
[2023-09-07 17:22] LABS: Base Excess VBG -2.1 mmol/L (0-4); HCO3 VBG 22 mmol/L (24-28); PCO2 VBG 34.9 mmHg (45-50); PO2 VBG 71 mmHg (35-45); pH VBG 7.41 (7.33-7.43)
[2023-09-07 17:23] LABS: Fractionated Inspired Oxygen 20; Oxygen Saturation VBG 94 % (70-75); Total CO2 VBG 22 mmol/L (24-29)
[2023-09-07 17:30] LABS: Add Manual Diff / Slide Review NO; Basophils Absolute Auto 100 /uL (0-100); Basophils Percent Auto 0.9 % (0-2); Eosinophils Absolute Auto 100 /uL (0-450); Eosinophils Percent Auto 1.3 % (2-4); Hematocrit 43.9 % (36-46); Hemoglobin 15.2 g/dL (12.0-16.0); Lymphocytes Absolute Auto 2100 /uL (1100-4500); Lymphocytes Percent Auto 32.7 % (25-40); Mean Corpuscular HGB Conc 34.5 % (30-36); Mean Corpuscular Hemoglobin 31.8 PG (26-34); Mean Corpuscular Volume 92.3 fL (80-100); Monocytes Absolute Auto 500 /uL (0-900); Monocytes Percent Auto 8.5 % (3-14); Neutrophils Absolute Auto 3600 /uL (1500-7000); Neutrophils Percent Auto 56.6 % (50-75); Platelet Count 204 X10^3/uL (150-400); Red Blood Cell Count 4.76 X10^6/uL (4.0-5.2); Red Cell Distribution Width 12.6 % (11.6-14.8); White Blood Cell Count 6.3 X10^3/uL (4.5-11.0)
[2023-09-07 17:31] LABS: Alanine Aminotransferase 36 IU/L (<35); Albumin 4.2 g/dL (3.5-5.0); Albumin Globulin Ratio 1.4 (1.0-2.8); Alkaline Phosphatase 235 U/L (38-126); Aspartate Aminotransferase 34 IU/L (14-36); BUN Creatinine Ratio 22.4 (6-22); Bilirubin Total 0.7 mg/dL (0.2-1.3); Blood Urea Nitrogen 15 mg/dL (7-17); Calcium 8.8 mg/dL (8.4-10.2); Carbon Dioxide 19 mmol/L (22-32); Chloride 101 mmol/L (98-107); Estimated Glomerular Filt Rate > 60 mL/min (>60); Globulin 3.1 g/dL (1.7-4.1); Potassium 4.1 mmol/L (3.4-5.1); Sodium 131 mmol/L (137-145); Total Protein 7.3 g/dL (6.3-8.2)
[2023-09-07 17:34] LABS: HEMOLYSIS 64 (0-50)
[2023-09-07 17:35] LABS: Glucose 591 mg/dL (70-100)
[2023-09-07] MEDS: SODIUM CHLORIDE 0.9% 1,000 ML 1000 ML IV (17:51)
[2023-09-07] MEDS: INSULIN REGULAR 100 UNIT/ML 3 ML VIAL 10 UNIT IV (17:51)
--- NOTE | 2023-09-07 18:01 | ED_ITS ---
HPI - General Adult General Chief complaint: Diabetic Problem Stated complaint: sent by high ADIN MCKEON. over 500 Time Seen by Provider: 09/07/23 17:39 Source: patient Mode of arrival: Ambulatory History of Present Illness HPI narrative: 48-year-old female with history of diabetes for many years, prescribed oral and injectable insulin regimen, got 5 days ago, preoccupied with all the festivities, has missed numerous doses of her oral agents and also some of her injectable insulin doses over the last few days, today noting that she is urinating frequently, feels that she might be dehydrated. No nausea or vomiting. No fevers or chills. She denies pain to her head, neck, face, throat, chest, abdomen, upper back, lower back, pelvis, legs, arms. She has supply of her medications, just had forgot to take them. Some alcohol use with festivities, not usually chronic. 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) ondansetron HCl 4 mg tablet 4 mg PO Q6-8H PRN nausea and 11/16/22 vomiting #30 tabs pen needle, diabetic 29 gauge x #600 ea 11/16/22 1/2 (1st Tier Unifine Pentips) fluoxetine 20 mg capsule (Prozac) 60 mg (3 x 20 mg) PO DAILY #90 caps 01/11/23 progesterone micronized 100 mg 100 mg PO ONCE PM #90 caps 01/11/23 capsule aripiprazole 5 mg tablet (Abilify) 5 mg PO BEDTIME #30 tabs 01/14/23 insulin lispro 100 unit/mL 15 unit (0.15 mL) SUBCUT TID #15 mL 01/14/23 subcutaneous pen (Humalog KwikPen (U-100) Insulin) promethazine 25 mg tablet 25 mg PO TID PRN nausea and 01/14/23 vomiting #90 tabs gabapentin 100 mg capsule 100 mg PO 3XD #270 caps 02/25/23 metformin 500 mg tablet 1,000 mg (2 x 500 mg) PO BIDWMEAL 03/28/23 #360 tabs sitagliptin phosphate 100 mg 100 mg PO DAILY #90 tabs 03/28/23 tablet (Januvia) trazodone 50 mg tablet 50 mg PO DAILY #90 tabs 03/28/23 verapamil 120 mg 24 hr 120 mg PO DAILY #90 caps 03/29/23 capsule,extended release atorvastatin 40 mg tablet (Lipitor) 40 mg PO BEDTIME cholesterol #90 04/15/23 tabs empagliflozin 25 mg tablet 25 mg PO DAILY #90 tabs 04/15/23 (Jardiance) losartan 25 mg tablet 25 mg PO BID #180 tabs 05/27/23 insulin glargine 100 unit/mL (3 40 unit (0.4 mL) SUBCUT QPM #15 mL 06/06/23 mL) subcutaneous pen (Basaglar KwikPen U-100 Insulin) blood-glucose sensor (Dexcom G7 #1 ea 06/20/23 Sensor device) liraglutide 0.6 mg/0.1 mL (18 mg/3 0.6 mg (0.1 mL) SUBCUT DAILY 07/19/23 mL) subcutaneous pen injector diabetes #6 mL (Victoza 2-Onel) Allergies Allergy/AdvReac Type Severity Reaction Status Date / Time No Known Drug Allergies Allergy Verified 09/07/23 17:12 Review of Systems Review of Systems Narrative: GENERAL: Well-developed patient, in mild distress. HEAD: Atraumatic. Normocephalic. EYES: Pupils equal round and reactive. Extraocular motions intact. No scleral icterus. No injection or drainage. ENT: Nose without bleeding, purulent drainage. Throat without erythema, tonsillar hypertrophy or exudate. Airway patent. NECK: Trachea midline. Non tender CARDIOVASCULAR: Regular rate and rhythm without murmurs, gallops, or rubs. RESPIRATORY: Clear to auscultation. Breath sounds equal bilaterally. No wheezes, rales, or rhonchi. GASTROINTESTINAL: Abdomen soft, non-tender, nondistended. EXTREMITIES: No edema or joint tenderness. BACK: Nontender without deformity or crepitance. No flank tenderness. NEURO: AOx3. SKIN: No rash or erythema of visible areas Patient History Medical History Elevated LFTs PTSD (post-traumatic stress disorder) Anxiety Migraines ADHD Chicken pox (~1983) Kidney stones (~1993) Frequent UTI (~1992) Persistent microalbuminuria associated with type 2 diabetes mellitus Insomnia Depression Decreased libido Ileostomy in place Crohn disease (~2003) Hyperlipidemia Benign essential HTN Type 2 diabetes mellitus with hyperglycemia, with long-term current use of insulin (~2003) Family History Father Hypertension Mental health problem Substance abuse Mother Cancer Mental health problem Grandfather Cancer Mental health problem Stroke Grandmother Diabetes mellitus History of heart disease Hyperlipidemia Hypertension Mental health problem Stroke Grandfather Diabetes mellitus History of heart disease Hyperlipidemia Hypertension Mental health problem Grandmother Diabetes mellitus History of heart disease Hypertension Mental health problem Social History Smoking Status: Current every day smoker Smoking Status: Current every day smoker alcohol intake frequency: holidays/special occasions only Substance Use Type: does not use Exam Narrative Exam Narrative: GENERAL: Well-developed patient, in mild distress. HEAD: Atraumatic. Normocephalic. EYES: Pupils equal round and reactive. Extraocular motions intact. No scleral icterus. No injection or drainage. ENT: Nose without bleeding, purulent drainage. Throat without erythema, tonsillar hypertrophy or exudate. Airway patent. NECK: Trachea midline. Non tender CARDIOVASCULAR: Regular rate and rhythm without murmurs, gallops, or rubs. RESPIRATORY: Clear to auscultation. Breath sounds equal bilaterally. No wheezes, rales, or rhonchi. GASTROINTESTINAL: Abdomen soft, non-tender, nondistended. EXTREMITIES: No edema or joint tenderness. BACK: Nontender without deformity or crepitance. No flank tenderness. NEURO: AOx3. SKIN: No rash or erythema of visible areas Initial Vital Signs Initial Vital Signs: Vital Signs Temperature 98.1 F 09/07/23 17:02 Pulse Rate 95 H 09/07/23 17:02 Respiratory Rate 14 09/07/23 17:02 Blood Pressure 166/103 H 09/07/23 17:02 Pulse Oximetry 93 09/07/23 17:02 Oxygen Delivery Method Room Air 09/07/23 17:02 Course Orders Ordered: Discontinued Medications Sodium Chloride (Normal Saline 0.9%) 1,000 mls @ 1,000 mls/hr IV BOLUS ONE Stop: 09/07/23 18:38 Last Infusion: 09/07/23 19:48 Dose: Infused Documented By: Admin: 09/07/23 17:51 Dose: 1,000 mls/hr Documented By: MÓNICA Insulin Human Regular (Insulin Regular 100 Unit/Ml 3 Ml Vial) 10 unit IV NOW ONE Stop: 09/07/23 17:40 Last Admin: 09/07/23 17:51 Dose: 10 unit Documented By: MÓNICA Co-signed By: ROMY Vital Signs Vital signs: Vital Signs - 8 hr 09/07/23 19:00 09/07/23 19:00 09/07/23 19:30 Pulse Rate 97 H 94 H Respiratory Rate 24 22 Blood Pressure 152/98 H Pulse Oximetry 96 96 Oxygen Delivery Method 09/07/23 20:00 09/07/23 20:48 Pulse Rate 97 H 85 Respiratory Rate Blood Pressure 140/94 H Pulse Oximetry 93 94 Oxygen Delivery Method Room Air Medical Decision Making Lab Data Lab results reviewed: Yes I reviewed the patient's lab results. 09/07/23 17:10 09/07/23 17:10 Labs: Lab Results 09/07/23 09/07/23 Range/Units 17:10 17:11 WBC 6.3 (4.5-11.0) X10^3/uL RBC 4.76 (4.0-5.2) X10^6/uL Hgb 15.2 (12.0-16.0) g/dL Hct 43.9 (36-46) % MCV 92.3 (80-100) fL MCH 31.8 (26-34) PG MCHC 34.5 (30-36) % RDW 12.6 (11.6-14.8) % Plt Count 204 (150-400) X10^3/uL Neut % (Auto) 56.6 (50-75) % Lymph % (Auto) 32.7 (25-40) % Treasure % (Auto) 8.5 (3-14) % Eos % (Auto) 1.3 L (2-4) % Baso % (Auto) 0.9 (0-2) % Neut # (Auto) 3600 (2391-4455) /uL Lymph # (Auto) 2100 (2500-5926) /uL Treasure # (Auto) 500 (0-900) /uL Eos # (Auto) 100 (0-450) /uL Baso # (Auto) 100 (0-100) /uL VBG pH 7.41 (7.33-7.43) VBG pCO2 34.9 L (45-50) mmHg VBG pO2 71 H (35-45) mmHg VBG HCO3 22 L (24-28) mmol/L VBG Total CO2 22 L (24-29) mmol/L VBG O2 Saturation 94 H (70-75) % VBG Base Excess -2.1 L (0-4) mmol/L FiO2 20 Sodium 131 L (137-145) mmol/L Potassium 4.1 (3.4-5.1) mmol/L Chloride 101 (98-107) mmol/L Carbon Dioxide 19 L (22-32) mmol/L BUN 15 (7-17) mg/dL Creatinine 0.67 (0.52-1.04) mg/dL Estimated GFR > 60 (>60) mL/min BUN/Creatinine Ratio 22.4 H (6-22) Glucose 591 H* (70-100) mg/dL Calcium 8.8 (8.4-10.2) mg/dL Total Bilirubin 0.7 (0.2-1.3) mg/dL AST 34 (14-36) IU/L ALT 36 H (<35) IU/L Alkaline Phosphatase 235 H (38-126) U/L Total Protein 7.3 (6.3-8.2) g/dL Albumin 4.2 (3.5-5.0) g/dL Globulin 3.1 (1.7-4.1) g/dL Albumin/Globulin Ratio 1.4 (1.0-2.8) Point of Care Testing Glucose POC 281 Point of care testing: Point of Care Testing Glucose POC 281 [facility] Narrative Medical decision making narrative: 48-year-old female with history of diabetes, has missed doses of her oral and injectable diabetes medications since her wedding 5 days ago, with the ceremony and subsequent festivities, frequency of urination today. Glucose high measured, 591, CMP shows anion gap 11, VBG shows normal pH, not consistent with DKA. IV fluid bolus ordered, given IV 10 units regular insulin. We will recheck sugars after completion of IV fluids. Anticipate discharge home. She has medications to use at home, just had forgotten numerous doses with all the ceremony/festivities since her wedding. She denies fevers and chills, afebrile, sirs screen negative, no obvious sources of infection by history. Repeat glucose 200s after IV fluids and IV insulin. Improved. Advised/encouraged to take her regular medications despite distraction from recent wedding ceremony and post wedding festivities. Improved, stable, home with family Critical Care Time Critical Care Time Critical Care Time: Yes Total Critical Care Time: 31 Attestation: The high probability of a clinically significant, sudden or life threatening deterioration of the [cardiovascular, endocrine] system(s) required my full and direct attention, intervention and personal management. The aggregate critical care time was [31] minutes. This time is in addition to time spent performing reported procedures but includes the following: [x] Data Review and interpretation [x] Patient assessment and monitoring of vital signs [x] Documentation [x] Medication orders and management Discharge Plan Departure Patient Disposition: Home Clinical Impression: Acute hyperglycemia, History of diabetes mellitus Activity Restrictions/Additional Instructions: History of diabetes, taking oral and injectable diabetes medications as baseline, recently 5 days ago, quite busy and preoccupied with the ceremony and festivities last days, numerous doses of diabetes medications missed both oral and injectable by history, sugars elevated, frequently urinating. Likely dehydration by history. Glucose 500 range noted. Normal anion gap on lab testing, normal acid on blood gas analysis, not consistent with dangerous condition of diabetic ketoacidosis. Hyperglycemia only for now, which was treated with IV fluids and IV insulin. Continue taking your prescribed regimen of oral and injectable diabetes medications, with care not to miss any doses. Follow up with your regular doctor in the next few days if sugar control is still challenging. Return earlier to this/nearest emergency department for any change worsening symptoms or any concerns prior Prescriptions: No Action rizatriptan [Maxalt] 10 mg tablet 10 mg PO Q2-4H PRN (Reason: migraine headache) Qty: 10 11RF Rx Instructions: do not exceed 2 doses per 24 hrs fluoxetine [Prozac] 20 mg capsule 60 mg PO DAILY Qty: 90 11RF progesterone micronized 100 mg capsule 100 mg PO ONCE PM Qty: 90 0RF Rx Instructions: Please follow up with provider or have PCP manage gabapentin 100 mg capsule 100 mg PO 3XD Qty: 270 3RF metformin 500 mg tablet 1,000 mg PO BIDWMEAL Qty: 360 3RF Januvia 100 mg tablet 100 mg PO DAILY Qty: 90 3RF trazodone 50 mg tablet 50 mg PO DAILY Qty: 90 3RF verapamil 120 mg capsule,ext rel. pellets 24 hr 120 mg PO DAILY Qty: 90 3RF losartan 25 mg tablet 25 mg PO BID Qty: 180 3RF insulin glargine [Basaglar KwikPen U-100 Insulin] 100 unit/mL (3 mL) insulin pen 40 unit SUBCUT QPM Qty: 15 3RF (DME) Dexcom G7 Sensor Device See Rx Instructions .Route Qty: 1 12RF Rx Instructions: USE TO MONITOR BLOOD SUGAR LEVELS CONTINUOUSLY. Victoza 2-Onel 0.6 mg/0.1 mL (18 mg/3 mL) pen injector 0.6 mg SUBCUT DAILY Qty: 6 1RF Jardiance 25 mg tablet 25 mg PO DAILY Qty: 90 3RF atorvastatin [Lipitor] 40 mg tablet 40 mg PO BEDTIME Qty: 90 3RF estradiol [Vivelle-Dot] 0.05 mg/24 hr patch semiweekly 1 patch transdermal 2XW Qty: 8 11RF Rx Instructions: apply 1 patch for 3 days alternating with 1 patch for 4 days each week for 3 wks per 4-wk cycle aripiprazole [Abilify] 5 mg tablet 5 mg PO BEDTIME Qty: 30 11RF insulin lispro [Humalog KwikPen Insulin] 100 unit/mL insulin pen 15 unit SUBCUT TID Qty: 15 11RF Rx Instructions: before meals. 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 REPLACE EVERY 365 DAYS OR IF BROKEN Referrals: Melissa Smith DO [Primary Care Provider] - Stand Alone Forms: Patient Portal/API
== END 2023-09-07 20:48 | disposition home or self-care (01) ==
PROVIDERS: Emergency Medicine; Emergency Provider Emergency Medicine; Family Provider Family Medicine; PCP Family Medicine
DX: E11.65 Type 2 diabetes mellitus with hyperglycemia (principal); T38.3X6A Underdosing of insulin and oral hypoglycemic [antidiabetic] drugs, initial encounter; Z91.138 Patient's unintentional underdosing of medication regimen for other reason; Z79.4 Long term (current) use of insulin; Z79.84 Long term (current) use of oral hypoglycemic drugs; R30.0 Dysuria
CPT/HCPCS: 36415; 80053; 81002; 82805; 82948; 82962; 85025; 87086; 96374; 99284

== ENCOUNTER → 2023-09-27 08:23 | Outpatient (CLI) | payer OTHER, MEDICAID, SELFPAY ==
[2023-09-27 10:14] LABS: Alanine Aminotransferase 35 IU/L (<35); Albumin 4.4 g/dL (3.5-5.0); Albumin Globulin Ratio 1.5 (1.0-2.8); Alkaline Phosphatase 102 U/L (38-126); Aspartate Aminotransferase 32 IU/L (14-36); BUN Creatinine Ratio 27.9 (6-22); Bilirubin Total 0.6 mg/dL (0.2-1.3); Blood Urea Nitrogen 24 mg/dL (7-17); Calcium 10.1 mg/dL (8.4-10.2); Carbon Dioxide 21 mmol/L (22-32); Chloride 105 mmol/L (98-107); Cholesterol 174 mg/dL (140-199); Estimated Glomerular Filt Rate > 60 mL/min (>60); Globulin 2.9 g/dL (1.7-4.1); Glucose 207 mg/dL (70-100); HDL Cholesterol 99 mg/dL (40-60); HEMOLYSIS < 15 (0-50); LDL Cholesterol Calculated 56 mg/dL (<100); Potassium 4.2 mmol/L (3.4-5.1); Sodium 137 mmol/L (137-145); Total Protein 7.3 g/dL (6.3-8.2); Triglycerides 97 mg/dL (35-150)
[2023-09-27 10:28] LABS: Vitamin D 25 Hydroxy (D3) 41.7 ng/mL (30.0-100.0)
[2023-09-27 11:04] LABS: HIV 1 & 2 Ab/Ag 4th Gen Combo NEGATIVE (NEGATIVE); Hep C Virus Ab w/Reflex Quant NEGATIVE s/c (NEGATIVE)
[2023-09-27 11:15] LABS: Folate > 20.0 ng/mL (2.76-20.0); Vitamin B12 570 pg/mL (239-931)
[2023-09-27 13:22] LABS: Hemoglobin A1C% w Est Avg Glu 11.2 % (4.0-6.0)
== END ==
PROVIDERS: Family Provider Family Medicine; PCP Family Medicine; Referring Provider Student in an Organized Health Care Education/Training Program; Visit Provider Student in an Organized Health Care Education/Training Program
DX: F32.A Depression, unspecified (principal); E11.65 Type 2 diabetes mellitus with hyperglycemia; Z79.4 Long term (current) use of insulin; E11.29 Type 2 diabetes mellitus with other diabetic kidney complication; R80.9 Proteinuria, unspecified; E83.52 Hypercalcemia; E78.5 Hyperlipidemia, unspecified
CPT/HCPCS: 36415; 80053; 80061; 82306; 82607; 82746; 83036; 84443; 86803; 87389

== ENCOUNTER → 2024-01-24 09:45 | Outpatient (CLI) | payer OTHER, MEDICAID, SELFPAY ==
[2024-01-24 10:22] LABS: Hemoglobin A1C% w Est Avg Glu 11.1 % (4.0-6.0)
[2024-01-24 10:33] LABS: BUN Creatinine Ratio 38.6 (6-22); Blood Urea Nitrogen 27 mg/dL (7-17); Calcium 9.6 mg/dL (8.4-10.2); Carbon Dioxide 20 mmol/L (22-32); Chloride 106 mmol/L (98-107); Cholesterol 164 mg/dL (140-199); Estimated Glomerular Filt Rate > 60 mL/min (>60); Glucose 405 mg/dL (70-100); HDL Cholesterol 73 mg/dL (40-60); HEMOLYSIS < 15 (0-50); LDL Cholesterol Calculated 44 mg/dL (<100); Potassium 4.3 mmol/L (3.4-5.1); Sodium 135 mmol/L (137-145); Triglycerides 235 mg/dL (35-150)
== END ==
PROVIDERS: Family Provider Family Medicine; PCP Family Medicine; Referring Provider Family Medicine; Visit Provider Family Medicine
DX: E11.65 Type 2 diabetes mellitus with hyperglycemia (principal); Z79.4 Long term (current) use of insulin; G43.909 Migraine, unspecified, not intractable, without status migrainosus; K50.90 Crohn's disease, unspecified, without complications
CPT/HCPCS: 36415; 80048; 80061; 83036

== ENCOUNTER → 2024-02-14 09:48 | Outpatient (CLI) | payer OTHER, SELFPAY ==
--- NOTE | 2024-02-14 14:30 | DIAB.MNT ---
Addendum entered by Estephania Torres 02/23/24 16:53: As indicated below in medications, patient is injecting insulin 4x per day to manage her diabetes. Additionally, she uses CGM to check BG or fingersticks 4x per day. Original Note: Initial Diabetes Medical Nutrition Therapy Assessment Name: Sangeeta Payne (Swati) Date: 02/14/24 Time: 10-1110a Dx: Type II Diabetes Provider: Sarah Preferred Learning Style: Listening, hands on Swati presents for initial visit with , Pedro. Endorses PMH of DM since age 28 and FH of DM with sister, both grandmothers and maternal grandfather. States DM started after TPN tx for Crohns disease. States she has been on insulin therapy since. Has had 2 times in her life where she could d/c insulin. This RD does have some curiosity about her cpeptide and/or antibody testing. States her sister is type 1.5. Reports colostomy use due to Crohns. Loves veggies, avoids some due to colostomy. Unintentional weight loss over the last year of 10# related likely to both reduced appetite and hyperglycemia. Reduced intake r/t frequent nausea. Recently d/c of GLP1 due to this. Also reports frequent GI upset and sometimes emesis. May be partially at least r/t consistent hyperglycemia. Endorses brain fog and short term memory issues Likely experiencing some diabetes distress given her reported overwhelmed feeling at times about dm. Diet Recall: 180-0010a: half cup coffee with cream 12-1p: atkins shake sn: sometimes nibble few bites of low carb bar or handful of veg 6-9p: veggie and hummus OR 1.5c sheppards pie 12-1a: PB, honey with keto bread and 16oz milk-- feels GI is better at this time Some days may have mostly tea all day due to nausea. Water coffee sf options: coke and jeff delia x 3-8 of 12oz Often forgets insulin at 12a snack/meal h/o keto diet. Proficient in carb counting per reprot. Endorses ED visit in summer 2023 with BG of 600mg/dl. States she is in therapy and working on extreme choices she makes all or nothing She is interested in pump therapy, RD messaged PCP about this. Anthropometrics: Ht: 66 Wt: 171# 12/2023 Physical Activity: walking, yoga Self-Monitoring Blood Glucose: Wears CGM when available, pharmacy/insurance refill is a challenge. If not wearing, checks with fingersticks. States FBG often in the 200s. Diabetes Medications: 25mg Jardiance 45u Glargine (titrating up to 50u) 5-15u Lispro TID 100mg Sitagliptin 1000mg Metformin BID Pertinent Labs: HGA1c: 11.1% 01/2024 Past Medical History: (Last Updated 10/05/23 @ 16:28 by Melissa Smith DO) ADHD Anxiety Attention deficit Benign essential HTN Chicken pox (~1983) Crohn disease (~2003) Decreased libido Depression Elevated LFTs Frequent UTI (~1992) Hyperlipidemia Ileostomy in place Insomnia Kidney stones (~1993) Migraines Nicotine dependence due to vaping non-tobacco product Persistent microalbuminuria associated with type 2 diabetes mellitus PTSD (post-traumatic stress disorder) Type 2 diabetes mellitus with hyperglycemia, with long-term current use of insulin (~2003) Nutrition Rx: Carbohydrates: Meal:30-45g Snack:15-30g Nutrition Diagnosis: - Intervention: This participant was very receptive. Provided appropriate educational handouts. Discussed the following topics: Completed intake assessment. Discussed barriers to care. Carb counting hx and potential for pump keto vs low CHO diet recs Recommended servings for carbohydrates at meals and snacks Eating frequency CGM and insulin pump resources and options meal timing Created SMART goals for patient self-care and success. Goals: Check into refill for G7 Chat with [employer] Take meal time insulin Eat TID Follow-up: [facility] follow-up in 2-[address] sent her info to [employer] for overview of pump coverage per pt request. Also messaged PCP about signing off on this, if not we will wait for endo. barrier is that she has a referral for endo but no appt yet which could set this therapy back by months. Estephania Torres RDN, EYAL Certified Diabetes Care and Report Checker P: [phone] Thank you for this referral
== END ==
PROVIDERS: Family Provider Family Medicine; PCP Family Medicine; Referring Provider Family Medicine
DX: E11.9 Type 2 diabetes mellitus without complications (principal); Z83.3 Family history of diabetes mellitus; Z71.3 Dietary counseling and surveillance; K50.90 Crohn's disease, unspecified, without complications; Z79.84 Long term (current) use of oral hypoglycemic drugs; Z79.4 Long term (current) use of insulin
CPT/HCPCS: 97802

== ENCOUNTER → 2024-02-14 11:15 | Outpatient (CLI) | payer OTHER, SELFPAY ==
[2024-02-14 11:51] LABS: Hematocrit 48.4 % (36-46); Hemoglobin 16.4 g/dL (12.0-16.0); Mean Corpuscular HGB Conc 33.8 % (30-36); Mean Corpuscular Hemoglobin 31.8 PG (26-34); Platelet Count 205 X10^3/uL (150-400); Red Blood Cell Count 5.15 X10^6/uL (4.0-5.2); Red Cell Distribution Width 12.7 % (11.6-14.8); White Blood Cell Count 5.7 X10^3/uL (4.5-11.0)
[2024-02-14 11:53] LABS: Hemoglobin A1C% w Est Avg Glu 11.1 % (4.0-6.0)
[2024-02-14 12:08] LABS: Alanine Aminotransferase 35 IU/L (<35); Albumin 4.3 g/dL (3.5-5.0); Albumin Globulin Ratio 1.5 (1.0-2.8); Alkaline Phosphatase 129 U/L (38-126); Aspartate Aminotransferase 30 IU/L (14-36); Bilirubin Total 0.5 mg/dL (0.2-1.3); Bilirubin Unconjugated 0.3 mg/dL (0.0-1.1); Globulin 2.9 g/dL (1.7-4.1); HEMOLYSIS < 15 (0-50); Lipase 334 U/L (23-300); Total Protein 7.2 g/dL (6.3-8.2)
== END ==
PROVIDERS: Family Provider Family Medicine; PCP Family Medicine; Referring Provider Family Medicine; Visit Provider Family Medicine
DX: K50.90 Crohn's disease, unspecified, without complications (principal); Z93.2 Ileostomy status; E11.65 Type 2 diabetes mellitus with hyperglycemia; Z79.4 Long term (current) use of insulin; R10.9 Unspecified abdominal pain; R11.2 Nausea with vomiting, unspecified
CPT/HCPCS: 36415; 80076; 83036; 83690; 85027; 97802

== ENCOUNTER → 2024-03-09 15:10 | Outpatient (CLI) | payer OTHER, SELFPAY ==
--- NOTE | 2024-03-15 15:14 | DIAB.MNTFU ---
Addendum entered by Estephania Torres 03/15/24 15:29: New goals from last visit; Call GI provider for f/u Call endo for appt Change injection sites If provider agrees, increase insulin to manage elevations RD will call on 03/15 and in person for insulin pump set up after Addendum entered by Estephania Torres 03/15/24 15:27: Call today 03/15/24: BG TIR still very elevated but improved with 53u HS insulin and consistent mealtime insulin and site injection changes. Will continue to monitor TIR: 75% very high 19% high 6% in range 0% low Original Note: Follow-up Diabetes Medical Nutrition Therapy Assessment Name: Sangeeta Payne (Swati) Date: 03/09/24 Time: 310-410 Dx: Type II Diabetes Swati presents for follow-up visit with , Pedro. Endorses PMH of DM since age 28 and FH of DM with sister, both grandmothers and maternal grandfather. States DM started after TPN tx for Crohns disease. States she has been on insulin therapy since. Has had 2 times in her life where she could d/c insulin. This RD does have some curiosity about her cpeptide and/or antibody testing. States her sister is type 1.5. Reports colostomy use due to Crohns. Loves veggies, avoids some due to colostomy. States she had a GI f/u sometime ago and her pancreas still inflamed. Has endocrinology referral, no call or appt Injecting insulin in the same sites, concern for scar tissue Approved for insulin pump and awaiting delivery. Diet Recall: 930-1130a: half cup coffee with cream 12-1p: no atkins shake lately, nothing or some grazing on veg and hummus or ranch sn: sometimes nibble few bites of low carb bar or handful of veg 6-9p: homemade solano with 0.5-0.75c rice 12-1a: PB, honey with keto bread and 16oz milk Some days may have mostly tea all day due to nausea. Water coffee sf options: coke and jeff delia x 3-8 of 12oz h/o keto diet. Proficient in carb counting per reprot. Endorses ED visit in summer 2023 with BG of 600mg/dl. States she is in therapy and working on extreme choices she makes all or nothing Anthropometrics: Ht: 66 Wt: 171# 12/2023 Physical Activity: walking, yoga Self-Monitoring Blood Glucose: TIR: 83% very high 11% high 6% in range 0% low avg/dl GMI: 11.1% std dev: 72mg/dl variance 22.1% Diabetes Medications: 25mg Jardiance 50u Glargine 15-25u Lispro TID 100mg Sitagliptin 1000mg Metformin BID Pertinent Labs: HGA1c: 11.1% 01/2024 Past Medical History: (Last Updated 10/05/23 @ 16:28 by Melissa Smith DO) ADHD Anxiety Attention deficit Benign essential HTN Chicken pox (~1983) Crohn disease (~2003) Decreased libido Depression Elevated LFTs Frequent UTI (~1992) Hyperlipidemia Ileostomy in place Insomnia Kidney stones (~1993) Migraines Nicotine dependence due to vaping non-tobacco product Persistent microalbuminuria associated with type 2 diabetes mellitus PTSD (post-traumatic stress disorder) Type 2 diabetes mellitus with hyperglycemia, with long-term current use of insulin (~2003) Nutrition Rx: Carbohydrates: Meal:30-45g Snack:15-30g Nutrition Diagnosis: - Inconsistent energy intake r/t GI symptoms, reduced hunger and nausea aeb pt report Intervention: This participant was very receptive. Provided appropriate educational handouts. Discussed the following topics: Carb counting review Importance of contacting care team, ie GI provider for f/u and endocrinology for initial appt Site injection recs Insulin needs: may need to increase basal and bolus given such elevations. Will message provider. Very likely to improve absorption efficiency with insulin pump delivery Created SMART goals for patient self-care and success. Goals: Check into refill for G7- met Chat with [employer]- met Take meal time insulin- met Eat TID- met Follow-up: [facility] follow-up in 2-3 weeks. Scheduled insulin pump appt with assumption that her pump and CGM will arrive in the next couple weeks. Estephania Torres RDN, EYAL Certified Diabetes Care and Multimedia Journalist P: [phone] Thank you for this referral
== END ==
LOC: DIET 15:10
PROVIDERS: Family Provider Family Medicine; PCP Family Medicine; Referring Provider Family Medicine
DX: E11.29 Type 2 diabetes mellitus with other diabetic kidney complication (principal); Z83.3 Family history of diabetes mellitus; Z79.4 Long term (current) use of insulin; K50.90 Crohn's disease, unspecified, without complications; Z93.3 Colostomy status; Z71.3 Dietary counseling and surveillance; Z79.84 Long term (current) use of oral hypoglycemic drugs; R80.9 Proteinuria, unspecified; E11.65 Type 2 diabetes mellitus with hyperglycemia; E78.5 Hyperlipidemia, unspecified
CPT/HCPCS: 97803

== ENCOUNTER → 2024-03-29 10:17 | Outpatient (CLI) | payer OTHER, SELFPAY ==
--- NOTE | 2024-03-29 10:58 | DIAB.FU ---
Follow-up Diabetes Education Assessment Name: Sangeeta Payne (Swati) Date: 03/29/24 Time: 1050-1150a Dx: Type II Diabetes Swati presents for follow-up visit with , Pedro. Endorses PMH of DM since age 28 and FH of DM with sister, both grandmothers and maternal grandfather. States DM started after TPN tx for Crohns disease. States she has been on insulin therapy since. Has had 2 times in her life where she could d/c insulin. This RD does have some curiosity about her cpeptide and/or antibody testing. States her sister is type 1.5. Reports colostomy use due to Crohns. Loves veggies, avoids some due to colostomy. Here today to start insulin pump therapy, [employer] six sigma black trainer here for assistance. Did not bring insulin today but will program pump settings and complete education. Increased basal to 60u, BG improved with this though still elevated. Last week was in [place] and was more active and different eating habits, which resulted in improved BG and some increase in lows. Treated with OJ. Settings based on 50u basal and 30u bolus per day 80u per day x 0.75: 60u Pump settings: I:C -- 1:7.5 Basal rate: 1.25u/hr BG target: 100-150mg/dl Anthropometrics: Ht: 66 Wt: 171# 12/2023 Physical Activity: walking, yoga Self-Monitoring Blood Glucose: TIR: 41% very high 21% high 36% in range 2% low <1% very low avg/dl GMI: 8.9% std dev: 103mg/dl variance 43.8% Last TIR: 83% very high 11% high 6% in range 0% low avg/dl GMI: 11.1% std dev: 72mg/dl variance 22.1% Diabetes Medications: 25mg Jardiance 60u Glargine 15-25u Lispro TID 100mg Sitagliptin 1000mg Metformin BID Pertinent Labs: HGA1c: 11.1% 01/2024 Past Medical History: (Last Updated 10/05/23 @ 16:28 by Melissa Smith DO) ADHD Anxiety Attention deficit Benign essential HTN Chicken pox (~1983) Crohn disease (~2003) Decreased libido Depression Elevated LFTs Frequent UTI (~1992) Hyperlipidemia Ileostomy in place Insomnia Kidney stones (~1993) Migraines Nicotine dependence due to vaping non-tobacco product Persistent microalbuminuria associated with type 2 diabetes mellitus PTSD (post-traumatic stress disorder) Type 2 diabetes mellitus with hyperglycemia, with long-term current use of insulin (~2003) Intervention: This participant was very receptive. Provided appropriate educational handouts. Discussed the following topics: New CGM placement and education Insulin pump education and settings Bolusing for meals/snacks Created SMART goals for patient self-care and success. Goals: Call GI- not discussed Call endo for appt- not discussed Change injection sites- met Try increasing basal by 2-3 u q 2-3 days until FBG in goal, stop at 60u- met Wear pump and new CGM- new Bolus for meals/correction- new Follow-up: [facility] follow-up in one day and over the next two weeks with six sigma black trainer and [address] [facility]. RD send message for provider rx for vials. Estephania Torres RDN, EYAL Certified Diabetes Care and Burner Tender P: [phone] Thank you for this referral
== END ==
PROVIDERS: Family Provider Family Medicine; PCP Family Medicine; Referring Provider Family Medicine
DX: E11.65 Type 2 diabetes mellitus with hyperglycemia (principal); E11.29 Type 2 diabetes mellitus with other diabetic kidney complication; R80.9 Proteinuria, unspecified; Z71.3 Dietary counseling and surveillance; Z83.3 Family history of diabetes mellitus; Z79.4 Long term (current) use of insulin; Z93.3 Colostomy status; Z79.84 Long term (current) use of oral hypoglycemic drugs; E78.5 Hyperlipidemia, unspecified
CPT/HCPCS: 95249; G0108

== ENCOUNTER → 2024-04-04 13:58 | Outpatient (CLI) | payer OTHER, SELFPAY ==
[2024-04-04 15:52] LABS: Hemoglobin A1C% w Est Avg Glu 11.2 % (4.0-6.0)
== END ==
PROVIDERS: Family Provider Family Medicine; PCP Family Medicine; Referring Provider Family Medicine; Visit Provider Family Medicine
DX: E11.65 Type 2 diabetes mellitus with hyperglycemia (principal); Z79.4 Long term (current) use of insulin
CPT/HCPCS: 36415; 83036

== ENCOUNTER → 2024-04-19 10:55 | Outpatient (CLI) | payer OTHER, SELFPAY ==
--- NOTE | 2024-05-10 16:36 | DIAB.FU ---
Follow-up Diabetes Education Assessment Name: Sangeeta Payne (Swati) Date: 04/19/24 Time: Dx: Type II Diabetes Swati presents for follow-up visit, accompanied by , Pedro. Endorses PMH of DM since age 28 and FH of DM with sister, both grandmothers and maternal grandfather. States DM started after TPN tx for Crohns disease. States she has been on insulin therapy since. Has had 2 times in her life where she could d/c insulin. This RD does have some curiosity about her cpeptide and/or antibody testing. States her sister is type 1.5. Reports colostomy use due to Crohns. Loves veggies, avoids some due to colostomy. Reports she has been traveling, which has impacted her diet and her bolusing. eating more carbs and not bolusing consistently. Using more insulin, may run out. Averaging 155u and rx for 75u. Has also had wt gain, likely from reduced BG and increased insulin absorption. Endorses 15# wt gain at last PCP visit. Will discuss nutrition in more detail next visit. Endorses more energy in general with improved BG. Pump settings: I:C -- 1:7.5---- changed to 6g ISF: 30 Basal rate: 1.25u/hr BG target: 120mg/dl Anthropometrics: Ht: 66 Wt: 171# 12/2023 Self-Monitoring Blood Glucose: Much improved time in range since last visit. Still excessive time >250mg/dl but almost to goal of 70% or more in range. TIR: 10% very high 25% high 64% in range 1% low 0% very low avg/dl GMI: 7.3% std dev: 54mg/dl variance 32.3% Last TIR: 41% very high 21% high 36% in range 2% low <1% very low avg/dl GMI: 8.9% std dev: 103mg/dl variance 43.8% Diabetes Medications: 25mg Jardiance Lispro via pump 100mg Sitagliptin 1000mg Metformin BID Pertinent Labs: HGA1c: 11.1% 01/2024 11.2% 03/2024 Past Medical History: (Last Updated 10/05/23 @ 16:28 by Melissa Smith DO) ADHD Anxiety Attention deficit Benign essential HTN Chicken pox (~1983) Crohn disease (~2003) Decreased libido Depression Elevated LFTs Frequent UTI (~1992) Hyperlipidemia Ileostomy in place Insomnia Kidney stones (~1993) Migraines Nicotine dependence due to vaping non-tobacco product Persistent microalbuminuria associated with type 2 diabetes mellitus PTSD (post-traumatic stress disorder) Type 2 diabetes mellitus with hyperglycemia, with long-term current use of insulin (~2003) Intervention: This participant was very receptive. Provided appropriate educational handouts. Discussed the following topics: Bolusing for carb intake Impact of higher insulin and weight gain IC ratio changes Created SMART goals for patient self-care and success. Goals: Call GI- in progress Call endo for appt- in progress Wear pump and new CGM- met Bolus for meals/correction- in progress Call [employer] for supplies- new Follow-up: [facility] follow-up in 3-4 weeks Estephania Torres RDN, EYAL Certified Diabetes Care and Lamp Replacer P: [phone] Thank you for this referral
== END ==
PROVIDERS: Family Provider Family Medicine; PCP Family Medicine; Referring Provider Family Medicine
DX: E11.65 Type 2 diabetes mellitus with hyperglycemia (principal); Z71.3 Dietary counseling and surveillance; Z83.3 Family history of diabetes mellitus; Z79.4 Long term (current) use of insulin; K50.90 Crohn's disease, unspecified, without complications; Z79.84 Long term (current) use of oral hypoglycemic drugs; Z96.41 Presence of insulin pump (external) (internal); E11.29 Type 2 diabetes mellitus with other diabetic kidney complication; R80.9 Proteinuria, unspecified; Z93.2 Ileostomy status; E78.5 Hyperlipidemia, unspecified
CPT/HCPCS: G0108

== ENCOUNTER → 2024-05-10 13:50 | Outpatient (CLI) | payer OTHER, SELFPAY ==
--- NOTE | 2024-05-10 16:54 | DIAB.MNTFU ---
Follow-up Diabetes Medical Nutrition Therapy Assessment Name: Sangeeta Payne (Swati) Date: 05/10/24 Time: 205-3p Dx: Type II Diabetes Swati presents for follow-up visit. Endorses PMH of DM since age 28 and FH of DM with sister, both grandmothers and maternal grandfather. States DM started after TPN tx for Crohns disease. States she has been on insulin therapy since. Has had 2 times in her life where she could d/c insulin. This RD does have some curiosity about her cpeptide and/or antibody testing. States her sister is type 1.5. Reports colostomy use due to Crohns. Loves veggies, avoids some due to colostomy. Endorses much more energy with improved BG, more open to going on walks, maybe join a gym. Reports struggling with calling GI and endo for appts, but not sure why. Plans to have her join her to make the call for more support. Reports reduced nausea, may be r/t improved BG. States food is overwhelming. Struggling with food textures and cooking 3-4x per week. cooks on weekend 1x. has a deep freezer. Sometimes not sure what is in there. has been batch cooking. Reports some disordered eating tendencies with over limiting CHO due to high BG. This has improved per report. Out of protein shakes recently. states she sometimes has the tendencies to binge carb foods, but notices if she allows herself small portions she can feel satisfied instead of abstaining and binging, ie ice cream or cereal. Reports she use to not feel changes in BG and now can tell when she is running high or low. Pump settings: I:C -- 1:76g ISF: 30 Basal rate: 1.25u/hr BG target: 120mg/dl TDD down from 155 to 92u, but no change in rx. Concerns for running out of insulin. RD messaged PCP and workgroup. Anthropometrics: Ht: 66 Wt: 182# 03/2024--- reports UBW fluctuations 175-190# 171# 12/2023 Self-Monitoring Blood Glucose: BG in therapeutic range and meeting goals. TIR: 1% very high 21% high 78% in range 0% low 0% very low avg/dl GMI: 7.0% std dev: 34mg/dl variance 21.9% Last TIR: 10% very high 25% high 64% in range 1% low 0% very low avg/dl GMI: 7.3% std dev: 54mg/dl variance 32.3% Diabetes Medications: 25mg Jardiance Lispro via pump 100mg Sitagliptin 1000mg Metformin BID Pertinent Labs: HGA1c: 11.1% 01/2024 11.2% 03/2024 Past Medical History: (Last Updated 10/05/23 @ 16:28 by Melissa Smith DO) ADHD Anxiety Attention deficit Benign essential HTN Chicken pox (~1983) Crohn disease (~2003) Decreased libido Depression Elevated LFTs Frequent UTI (~1992) Hyperlipidemia Ileostomy in place Insomnia Kidney stones (~1993) Migraines Nicotine dependence due to vaping non-tobacco product Persistent microalbuminuria associated with type 2 diabetes mellitus PTSD (post-traumatic stress disorder) Type 2 diabetes mellitus with hyperglycemia, with long-term current use of insulin (~2003) Intervention: This participant was very receptive. Provided appropriate educational handouts. Discussed the following topics: Personal feelings about wt CHO in moderation Physical activity meal prep with family progress she has made encouraged endo appt Impact of improved BG on how she feels and pathophysiology of hyperglycemia Created SMART goals for patient self-care and success. Goals: Call GI- in progress Call endo for appt- in progress Bolus for meals/correction- met Call [employer] for supplies- met turning machine set up operator shakes- new Try morning walks- new Make a deep freeze list- new Ask to cook two meals on weekends to allow for leftovers- new Follow-up: [facility] follow-up in 3-4 weeks Estephania Torres RDN, EYAL Certified Diabetes Care and Scoring Machine Operator P: [phone] Thank you for this referral
== END ==
PROVIDERS: Family Provider Family Medicine; PCP Family Medicine; Referring Provider Family Medicine
DX: E11.29 Type 2 diabetes mellitus with other diabetic kidney complication (principal); K50.90 Crohn's disease, unspecified, without complications; R80.9 Proteinuria, unspecified; E11.65 Type 2 diabetes mellitus with hyperglycemia; E78.5 Hyperlipidemia, unspecified; Z79.4 Long term (current) use of insulin; Z93.2 Ileostomy status; Z96.41 Presence of insulin pump (external) (internal); Z79.84 Long term (current) use of oral hypoglycemic drugs
CPT/HCPCS: 97803

== ENCOUNTER → 2024-06-08 14:56 | Outpatient (CLI) | payer OTHER, SELFPAY ==
--- NOTE | 2024-06-19 10:30 | DIAB.MNTFU ---
Follow-up Diabetes Medical Nutrition Therapy Assessment Name: Sangeeta Payne (Swati) Date: 06/08/24 Time: 3-345p Dx: Type II Diabetes Swati presents for follow-up visit. Endorses PMH of DM since age 28 and FH of DM with sister, both grandmothers and maternal grandfather. States DM started after TPN tx for Crohns disease. States she has been on insulin therapy since. Has had 2 times in her life where she could d/c insulin. Colostomy use due to Crohns. Loves veggies, avoids some due to colostomy. Reports reduced fatigue with insulin pump therapy and improved BG. States her sleep has improved, less long periods of sleeping in. Endorses more focus and less nausea with improved BG. Portioning out foods. Splitting sweets with to reduce intake. Trying to eat more consistently through the day, much improved since reduced nausea. Using shakes and nut bar for snacks. Reports sometimes skipping day time intake sometimes results in high intake in evening. Batch cooking and pairing macronutrients. Clothes seem to fit better. More fruts and veggies. Eye sight seems better per report. Diet recall: 9a: muffin, low CHO roll up with cheese and meat OR apple 2p: low carb roll up with coleslaw 4-5p: veggies and hummus OR 5 crackers with cheese 7-9p: protein and veggies water 50oz + sf sweet tea sf gatorade d/c of diet sodas Pump settings: I:C -- 1:76g ISF: 30 Basal rate: 1.25u/hr BG target: 120mg/dl --- 110mg/dl changed today TDD 97u Anthropometrics: Ht: 66 Wt: 182# 03/2024--- reports UBW fluctuations 175-190# 171# 12/2023 Self-Monitoring Blood Glucose: BG in therapeutic range and meeting goals. Slight improved TIR since last visit. TIR: 1% very high 19% high 80% in range 0% low 0% very low avg/dl GMI: 6.9% std dev: 35mg/dl variance 23.6% Last TIR: 1% very high 21% high 78% in range 0% low 0% very low avg/dl GMI: 7.0% std dev: 34mg/dl variance 21.9% Diabetes Medications: 25mg Jardiance Lispro via pump 100mg Sitagliptin 1000mg Metformin BID Pertinent Labs: HGA1c: 11.1% 01/2024 11.2% 03/2024 Past Medical History: (Last Updated 10/05/23 @ 16:28 by Melissa Smith DO) ADHD Anxiety Attention deficit Benign essential HTN Chicken pox (~1983) Crohn disease (~2003) Decreased libido Depression Elevated LFTs Frequent UTI (~1992) Hyperlipidemia Ileostomy in place Insomnia Kidney stones (~1993) Migraines Nicotine dependence due to vaping non-tobacco product Persistent microalbuminuria associated with type 2 diabetes mellitus PTSD (post-traumatic stress disorder) Type 2 diabetes mellitus with hyperglycemia, with long-term current use of insulin (~2003) Nutrition Rx: Carbohydrates: Meal:30-45g Snack:15-30g Nutrition Diagnosis: - Inconsistent energy intake r/t GI symptoms, reduced hunger and nausea aeb pt report--- improved - Excessive energy intake r/t sometimes skipping day time intake increasing evening snacking aeb pt report- new Intervention: This participant was very receptive. Provided appropriate educational handouts. Discussed the following topics: Impact of improved BG on her health, ie eye sight, fatigue, focus, nausea Nutrition recs, portions, and meal/snack timing Updated BG target to 110mg/dl, will consider 100mg/dl next visit. Created SMART goals for patient self-care and success. Goals: sample supervisor shakes- met Try morning walks- in progress Make a deep freeze list- not met Ask to cook two meals on weekends to allow for leftovers- not discussed Continue nutrition changes- new Aim to eat consistently during the day to avoid higher intake at night- new Follow-up: [facility] follow-up in 6-8 weeks Estephania Torres RDN, EYAL Certified Diabetes Care and Inner Tube Inserter P: [phone] Thank you for this referral
== END ==
LOC: DIET 14:56
PROVIDERS: Family Provider Family Medicine; PCP Family Medicine; Referring Provider Family Medicine
DX: E11.9 Type 2 diabetes mellitus without complications (principal); Z83.3 Family history of diabetes mellitus; Z71.3 Dietary counseling and surveillance; K50.90 Crohn's disease, unspecified, without complications; Z79.84 Long term (current) use of oral hypoglycemic drugs; Z79.4 Long term (current) use of insulin; Z96.41 Presence of insulin pump (external) (internal)
CPT/HCPCS: 97803

== ENCOUNTER → 2024-07-14 11:50 | Outpatient (CLI) | payer OTHER, SELFPAY | PROVIDERS: Family Provider Family Medicine; PCP Family Medicine; Visit Provider Nurse Practitioner Family | DX: R30.0 Dysuria (principal) | CPT/HCPCS: 87086 ==

== ENCOUNTER → 2024-08-06 14:13 | Outpatient (CLI) | payer OTHER, SELFPAY ==
[2024-08-06 15:35] LABS: BUN Creatinine Ratio 18.1 (6-22); Blood Urea Nitrogen 15 mg/dL (7-17); Calcium 9.7 mg/dL (8.4-10.2); Carbon Dioxide 28 mmol/L (22-32); Chloride 103 mmol/L (98-107); Estimated Glomerular Filt Rate > 60 mL/min (>60); Glucose 142 mg/dL (70-99); HEMOLYSIS < 15 (0-50); Potassium 4.6 mmol/L (3.4-5.1); Sodium 137 mmol/L (137-145)
[2024-08-06 15:36] LABS: Hemoglobin A1C% w Est Avg Glu 6.8 % (4.0-6.0)
== END ==
LOC: LAB 14:14
PROVIDERS: PCP Family Medicine; Referring Provider Family Medicine; Visit Provider Family Medicine
DX: R79.89 Other specified abnormal findings of blood chemistry (principal); E11.29 Type 2 diabetes mellitus with other diabetic kidney complication; R80.9 Proteinuria, unspecified; E78.5 Hyperlipidemia, unspecified; I10 Essential (primary) hypertension
CPT/HCPCS: 36415; 80048; 83036

== ENCOUNTER → 2024-08-16 16:20 | Outpatient (CLI) | payer OTHER, SELFPAY ==
--- NOTE | 2024-08-24 11:01 | DIAB.FU ---
Follow-up Diabetes Education Assessment Name: Sangeeta Payne (Swati) Date: 08/16/24 Time: 425-450p Dx: Type II Diabetes Swati presents for follow-up visit. Endorses PMH of DM since age 28 and FH of DM with sister, both grandmothers and maternal grandfather. States DM started after TPN tx for Crohns disease. States she has been on insulin therapy since. Has had 2 times in her life where she could d/c insulin. Colostomy use due to Crohns. Reports issues with pump supply function. RN messaged RD and scheduled PCP same day. unable to use reservoir due to defect. Difficulty troubleshooting how to refill with insulin per report. Messaged RD, but prior to this visit RD lost access to messaging, now resolved. Needed new reservoir. Worries about wt gain and wants to discuss this next visit. Issue with connectivity with bernarda and pump, but bernarda is not signed into. Does not remember password at this time. Great improvement to hgA1c. Last Diet recall: 9a: muffin, low CHO roll up with cheese and meat OR apple 2p: low carb roll up with coleslaw 4-5p: veggies and hummus OR 5 crackers with cheese 7-9p: protein and veggies water 50oz + sf sweet tea sf gatorade d/c of diet sodas Pump settings: I:C -- 1:76g ISF: 30 Basal rate: 1.25u/hr BG target: 120mg/dl --- 110mg/dl TDD 97u Anthropometrics: Ht: 66 Wt: 182# 03/2024--- reports UBW fluctuations 175-190# 171# 12/2023 Self-Monitoring Blood Glucose: No new reports this visit due to connectivity issues TIR: % very high % high % in range % low % very low avg: g/dl GMI: % std dev: mg/dl variance % Last TIR: 1% very high 19% high 80% in range 0% low 0% very low avg/dl GMI: 6.9% std dev: 35mg/dl variance 23.6% Diabetes Medications: 25mg Jardiance Lispro via pump 100mg Sitagliptin 1000mg Metformin BID Pertinent Labs: HGA1c: 11.1% 01/2024 11.2% 03/2024 6.8% 07/2024 Past Medical History: (Last Updated 10/05/23 @ 16:28 by Melissa Smith DO) ADHD Anxiety Attention deficit Benign essential HTN Chicken pox (~1983) Crohn disease (~2003) Decreased libido Depression Elevated LFTs Frequent UTI (~1992) Hyperlipidemia Ileostomy in place Insomnia Kidney stones (~1993) Migraines Nicotine dependence due to vaping non-tobacco product Persistent microalbuminuria associated with type 2 diabetes mellitus PTSD (post-traumatic stress disorder) Type 2 diabetes mellitus with hyperglycemia, with long-term current use of insulin (~2003) Intervention: This participant was very receptive. Provided appropriate educational handouts. Discussed the following topics: Provided sample reservoir Helped troubleshoot filling issues Brief discussion about weight and changes in BG management Helped troubleshoot bernarda connectivity issue Created SMART goals for patient self-care and success. Goals: Continue nutrition changes- not discussed today Aim to eat consistently during the day to avoid higher intake at night- not discussed today Sign into bernarda at home- new Follow-up: [facility] follow-up in 2-3 weeks for more nutrition and food discussion Estephania Torres RDN, EYAL Certified Diabetes Care and [place]ummel Selector P: [phone] Thank you for this referral
== END ==
PROVIDERS: PCP Family Medicine; Referring Provider Family Medicine
DX: E11.9 Type 2 diabetes mellitus without complications (principal); Z71.3 Dietary counseling and surveillance; Z83.3 Family history of diabetes mellitus; Z79.84 Long term (current) use of oral hypoglycemic drugs; Z79.4 Long term (current) use of insulin; Z96.41 Presence of insulin pump (external) (internal)
CPT/HCPCS: G0108

== ENCOUNTER → 2024-09-07 14:52 | Outpatient (CLI) | payer OTHER, SELFPAY ==
--- NOTE | 2024-10-11 10:24 | DIAB.MNTFU ---
Follow-up Diabetes Medical Nutrition Therapy Assessment Name: Sangeeta Payne (Swati) Date: 09/07/24 Time: 3-4p Dx: Type II Diabetes Swati presents for follow-up visit. Endorses PMH of DM since age 28 and FH of DM with sister, both grandmothers and maternal grandfather. States DM started after TPN tx for Crohns disease. States she has been on insulin therapy since. Has had 2 times in her life where she could d/c insulin. Colostomy use due to Crohns. Continues with pump therapy. reports some barriers with diet, including stress eating and change in diet (due to dental care). States she woudl like some meal/snack ideas. Also needs to reset her password for [employer]arda. Needs new sensors as well. Otherwise, she feels she is doing well. Last Diet recall: : coffee, cheese sandwich with rehman 130-2p: pudding or trail mix sn: low CHO shake OR veggies with hummus 6-7p: stroganodd with potato x 1 med OR pasta casserole 12a: craving cereal water sf sweet tea diet soda stress eating candy bar and toffee sometimes per report. Pump settings: I:C -- 1:76g ISF: 30 Basal rate: 1.25u/hr BG target: 120mg/dl --- 110mg/dl TDD 97u---- 73.35 Anthropometrics: Ht: 66 Wt: 182# 03/2024--- reports UBW fluctuations 175-190# 171# 12/2023 Self-Monitoring Blood Glucose: No new reports this visit due to connectivity issues. Limited access to TIR. TIR: % very high % high % in range % low % very low avg/dl GMI: % std dev: mg/dl variance % Last TIR: 1% very high 19% high 80% in range 0% low 0% very low avg/dl GMI: 6.9% std dev: 35mg/dl variance 23.6% Diabetes Medications: 25mg Jardiance Lispro via pump 100mg Sitagliptin 1000mg Metformin BID Pertinent Labs: HGA1c: 11.1% 01/2024 11.2% 03/2024 6.8% 07/2024 Past Medical History: (Last Updated 10/05/23 @ 16:28 by Melissa Smith DO)ADHD Anxiety Attention deficit Benign essential HTN Chicken pox (~1983) Crohn disease (~2003) Decreased libido Depression Elevated LFTs Frequent UTI (~1992) Hyperlipidemia Ileostomy in place Insomnia Kidney stones (~1993) Migraines Nicotine dependence due to vaping non-tobacco product Persistent microalbuminuria associated with type 2 diabetes mellitus PTSD (post-traumatic stress disorder) Type 2 diabetes mellitus with hyperglycemia, with long-term current use of insulin (~2003) Nutrition Rx: Carbohydrates: Meal:30-45gSnack:15-30g Nutrition Diagnosis: - Excessive CHO intake r/t cravings aeb pt report and elevated BG Intervention: This participant was very receptive. Provided appropriate educational handouts. Discussed the following topics: Stress eating Bolusing for CHO Meal/snack ideas, easy prep both her and her can enjoy CHO portions Encouraged call to pump company for sensors and to reset password Created SMART goals for patient self-care and success. Goals: Sign into bernarda at home- not met Call pump company- new Try new meal/snack ideas- new Follow-up: [facility] follow-up prn per pt req. Would benefit from at least 2-4 DM ed visits per year given pump therapy. Will connect with pt regarding this. Estephania Torres, EYAD, EYAL Certified Diabetes Care and Machine Etcher P: [phone] Thank you for this referral
== END ==
LOC: DIET 14:53
PROVIDERS: PCP Family Medicine
DX: E11.9 Type 2 diabetes mellitus without complications (principal); Z71.3 Dietary counseling and surveillance; Z83.3 Family history of diabetes mellitus; Z93.3 Colostomy status; K50.90 Crohn's disease, unspecified, without complications; Z79.4 Long term (current) use of insulin; Z96.41 Presence of insulin pump (external) (internal); Z79.84 Long term (current) use of oral hypoglycemic drugs
CPT/HCPCS: 97803

== ENCOUNTER → 2024-11-27 15:15 | Outpatient (CLI) | payer OTHER, SELFPAY ==
--- NOTE | 2024-12-27 16:59 | DIAB.MNTFU ---
Follow-up Diabetes Medical Nutrition Therapy Assessment Name: Sangeeta Payne (Swati) Date: 11/27/24 Time: 330-4p Dx: Type II Diabetes Swati presents for follow-up visit. Endorses PMH of DM since age 28 and FH of DM with sister, both grandmothers and maternal grandfather. States DM started after TPN tx for Crohns disease. States she has been on insulin therapy since. Has had 2 times in her life where she could d/c insulin. Colostomy use due to Crohns. Continues with pump therapy. Picked up different whole grains to try. Cereal lately, but trying to be smart about portions. bolusing for meals/snacks. Some nausea with ADHD med per report, and diarrhea. With nausea, she notices more lows. Not liking some textures right now, ie soft bread. Eating veggies and fruit. using small juices to tx lows. Candy in the car and has glucose tabs, but does not like them. Carrying protein bars with her. Drinking low CHO shakes. Possibly GLP1 addition. Pump settings: I:C -- 1:76g ISF: 30 Basal rate: 1.25u/hr BG target: 120mg/dl --- 110mg/dl TDD 97u---- 73.35--- 53u Anthropometrics: Ht: 66 Wt: 182# 03/2024--- reports UBW fluctuations 175-190# 171# 12/2023 Self-Monitoring Blood Glucose: 14 day average shows increase in hyperglycemia compared to previous reports, though meeting TIR goal of >70% in range. TIR: 0% very high 21% high 77% in range 0% low 0% very low avg/dl GMI: % std dev: 26.8mg/dl variance % Last TIR: % very high % high % in range % low % very low avg/dl GMI: % std dev: mg/dl variance % Diabetes Medications: 25mg Jardiance Lispro via pump 100mg Sitagliptin 1000mg Metformin BID Pertinent Labs: HGA1c: 11.1% 01/2024 11.2% 03/2024 6.8% 07/2024 7% 11/2024 Past Medical History: (Last Updated 10/23/24 @ 14:09 by Ali Salari, DO) ADHD Anxiety Attention deficit Benign essential HTN Chicken pox (~1983) Crohn disease (~2003) Decreased libido Depression Elevated LFTs Frequent UTI (~1992) Hyperlipidemia Ileostomy in place Insomnia Kidney stones (~1993) Macromastia 2024: 38H Migraines Nicotine dependence due to vaping non-tobacco product Persistent microalbuminuria associated with type 2 diabetes mellitus PTSD (post-traumatic stress disorder) Type 2 diabetes mellitus with hyperglycemia, with long-term current use of insulin (~2003) Nutrition Rx: Carbohydrates: Meal:30-45gSnack:15-30g Nutrition Diagnosis: - Excessive CHO intake r/t cravings aeb pt report and elevated BG- in progress Intervention: This participant was very receptive. Provided appropriate educational handouts. Discussed the following topics: Meal/snack ideas based on food preferences CHO portions Review of GLP1 Created SMART goals for patient self-care and success. Goals: Sign into bernarda at home- not met Call pump company- met Try new meal/snack ideas- met Try hummus - new Add Azeri yogurt- new Follow-up: [facility] follow-up prn per pt req. Would benefit from at least 2-4 DM ed visits per year given pump therapy. Will connect with pt in May 2025. Estephania Torres, EYAD, EYAL Certified Diabetes Care and Conference Specialist P: [phone] Thank you for this referral
== END ==
PROVIDERS: PCP Family Medicine; Referring Provider Family Medicine
DX: E11.65 Type 2 diabetes mellitus with hyperglycemia (principal); K50.90 Crohn's disease, unspecified, without complications; Z71.3 Dietary counseling and surveillance; Z83.3 Family history of diabetes mellitus; Z79.4 Long term (current) use of insulin; Z93.3 Colostomy status; Z79.84 Long term (current) use of oral hypoglycemic drugs; Z96.41 Presence of insulin pump (external) (internal)
CPT/HCPCS: 97803

== ENCOUNTER → 2024-11-27 16:06 | Outpatient (CLI) | payer OTHER, SELFPAY ==
[2024-11-27 17:17] LABS: Hemoglobin A1C% w Est Avg Glu 7.0 % (4.0-6.0)
[2024-11-27 17:21] LABS: HEMOLYSIS < 15 (0-50); Iron 63 ug/dL (37-170)
[2024-11-27 17:28] LABS: Transferrin 246 mg/dL (206-381)
[2024-11-27 17:37] LABS: Percent Iron Saturation 22 % (15-50); Total Iron Binding Capacity 286 ug/dL (265-497)
[2024-11-27 17:58] LABS: Ferritin 153 ng/mL (11-264)
== END ==
PROVIDERS: PCP Family Medicine; Referring Provider Family Medicine; Visit Provider Family Medicine
DX: G25.81 Restless legs syndrome (principal); E11.65 Type 2 diabetes mellitus with hyperglycemia; Z79.4 Long term (current) use of insulin; K50.90 Crohn's disease, unspecified, without complications; Z71.3 Dietary counseling and surveillance; Z83.3 Family history of diabetes mellitus; Z93.3 Colostomy status; Z79.84 Long term (current) use of oral hypoglycemic drugs; Z96.41 Presence of insulin pump (external) (internal)
CPT/HCPCS: 36415; 82728; 83036; 83540; 83550; 97803

== ENCOUNTER 2024-12-30 19:04 | Emergency (ER) | payer OTHER, SELFPAY ==
[2024-12-30 19:08] VITALS: BP 161/103; PULSE 115; RESP 18; TEMP 36.8; O2SAT 96; BMI 33.7
[2024-12-30 19:49] LABS: Alanine Aminotransferase 45 IU/L (<35); Albumin 4.1 g/dL (3.5-5.0); Albumin Globulin Ratio 1.3 (1.0-2.8); Alkaline Phosphatase 136 U/L (38-126); Blood Urea Nitrogen 14 mg/dL (7-17); Calcium 9.4 mg/dL (8.4-10.2); Carbon Dioxide 24 mmol/L (22-32); Chloride 105 mmol/L (98-107); Estimated Glomerular Filt Rate > 60 mL/min (>60); Globulin 3.2 g/dL (1.7-4.1); HEMOLYSIS 21 (0-50); Lactate (Lactic Acid) 1.1 mmol/L (0.7-2.1); Potassium 4.2 mmol/L (3.4-5.1); Sodium 137 mmol/L (137-145); Total Protein 7.3 g/dL (6.3-8.2)
[2024-12-30 19:50] LABS: Add Manual Diff / Slide Review NO; Hematocrit 42.7 % (36-46); Hemoglobin 14.8 g/dL (12.0-16.0); Lymphocytes Absolute Auto 1900 /uL (1100-4500); Mean Corpuscular HGB Conc 34.7 % (30-36); Mean Corpuscular Hemoglobin 31.8 PG (26-34); Mean Corpuscular Volume 91.6 fL (80-100); Platelet Count 210 X10^3/uL (150-400)
[2024-12-30 19:55] LABS: Ketones (Beta-Hydroxybutyrate) 0.02 mmol/L (<0.27)
[2024-12-30 19:56] LABS: Glucose 473 mg/dL (70-99)
[2024-12-30 21:08] LABS: Culture Indicated Urine Specimen Cultured
[2024-12-30 22:08] VITALS: BP 123/84; PULSE 101; RESP 12; O2SAT 95
--- NOTE | 2024-12-30 22:10 | ED.GENADULT ---
HPI - General Adult General Chief complaint: Diabetic Problem Stated complaint: blood sugar over 400 Time Seen by Provider: 12/30/24 19:57 Source: patient Mode of arrival: Ambulatory History of Present Illness HPI narrative: 49-year-old female ran out of diabetic medicines for which she thought she had a 1 year's worth of supply but realized she did not have enough call the office on Tuesday but unable to get a hold of anyone came in today with sugar in the 400s. Other than what is stated 14 point review of system is negative. Related Data Home Medications ?Medication ?Instructions ?Recorded ?Confirmed pen needle, diabetic 31 gauge x #1,200 ea 11/08/23 11/20/24/16 (BD Ultra-Fine Short Pen Needle) fluoxetine 40 mg capsule 80 mg PO DAILY 11/07/24 12/26/24 Previous Rx's ?Medication ?Instructions ?Recorded rizatriptan 10 mg tablet (Maxalt) 10 mg PO Q2-4H PRN migraine 10/22/22 headache #10 tabs pen needle, diabetic 29 gauge x #600 ea 11/16/22/ (1st Tier Unifine Pentips) promethazine 25 mg tablet 25 mg PO TID PRN nausea and 01/14/23 Held on 01/11/24. vomiting #90 tabs Instructions: Home Medication placed on hold at Doctor's office metformin 500 mg tablet 1,000 mg (2 x 500 mg) PO BIDWMEAL 03/28/23 #360 tabs atorvastatin 40 mg tablet (Lipitor) 40 mg PO BEDTIME cholesterol #90 04/15/23 tabs losartan 25 mg tablet 25 mg PO BID #180 tabs 05/27/23 cholecalciferol (vitamin D3) 125 125 mcg PO DAILY supplement #30 09/21/23 mcg (5,000 unit) capsule caps aripiprazole 5 mg tablet (Abilify) 5 mg PO BEDTIME #30 tabs 01/16/24 ondansetron 4 mg disintegrating 4 mg PO Q8-12H PRN nausea and 01/27/24 tablet vomiting #60 tabs sitagliptin phosphate 100 mg 100 mg PO DAILY #90 tabs 02/27/24 tablet (Januvia) trazodone 50 mg tablet 50 mg PO DAILY #90 tabs 02/27/24 insulin lispro 100 unit/mL 120 unit (1.2 mL) SUBCUT DAILY #30 05/11/24 subcutaneous solution mL insulin lispro-aabc 100 unit/mL 5 unit (0.05 mL) SUBCUT TID PRN 09/17/24 subcutaneous pen elevated blood sugars #15 mL atomoxetine 10 mg capsule 10 mg PO ONCE #30 caps 11/20/24 cyclobenzaprine 5 mg tablet 5 mg PO Q8H PRN muscle spasm #30 11/20/24 tabs gabapentin 100 mg capsule 200 mg (2 x 100 mg) PO 3XD PRN 11/20/24 anxiety #90 caps empagliflozin 25 mg tablet 25 mg PO DAILY #90 tabs 11/26/24 (Jardiance) insulin lispro 100 unit/mL 120 unit (1.2 mL) SUBCUT 12/30/24 subcutaneous cartridge USEASDIRECTD #30 mL insulin lispro-aabc 100 unit/mL 5 unit (0.05 mL) SUBCUT TID PRN 12/30/24 subcutaneous pen elevated blood sugar 30 days #15 mL Allergies Allergy/AdvReac Type Severity Reaction Status Date / Time No Known Drug Allergies Allergy Verified 12/30/24 19:08 Review of Systems Review of Systems ROS Unobtainable: All systems reviewed & are unremarkable except as noted in HPI and below Patient History Medical History (Updated 12/30/24 @ 23:56 by Niko Rothman DO) Macromastia Nicotine dependence due to vaping non-tobacco product Attention deficit Elevated LFTs PTSD (post-traumatic stress disorder) Anxiety Migraines ADHD Chicken pox (~1983) Kidney stones (~1993) Frequent UTI (~1992) Persistent microalbuminuria associated with type 2 diabetes mellitus Insomnia Depression Decreased libido Ileostomy in place Crohn disease (~2003) Hyperlipidemia Benign essential HTN Type 2 diabetes mellitus with hyperglycemia, with long-term current use of insulin (~2003) Family History Father Hypertension Mental health problem Substance abuse Mother Cancer Mental health problem Grandfather Cancer Mental health problem Stroke Grandmother Diabetes mellitus History of heart disease Hyperlipidemia Hypertension Mental health problem Stroke Grandfather Diabetes mellitus History of heart disease Hyperlipidemia Hypertension Mental health problem Grandmother Diabetes mellitus History of heart disease Hypertension Mental health problem Social History Smoking Status: Current every day smoker Smoking Status: Current every day smoker tobacco type: vaping alcohol intake frequency: holidays/special occasions only Exam Narrative Exam Narrative: GENERAL: [49] year old patient appears stated age. Well-developed patient, in mild distress. HEAD: Atraumatic. Normocephalic. EYES: Pupils equal round and reactive. Extraocular motions intact. No scleral icterus. No injection or drainage. ENT: Nose without bleeding, purulent drainage. Throat without erythema, tonsillar hypertrophy or exudate. Airway patent. NECK: Trachea midline. Non tender CARDIOVASCULAR: Regular rate and rhythm without murmurs, gallops, or rubs. RESPIRATORY: Clear to auscultation. Breath sounds equal bilaterally. No wheezes, rales, or rhonchi. GASTROINTESTINAL: Abdomen soft, non-tender, nondistended. EXTREMITIES: No edema or joint tenderness. BACK: Nontender without deformity or crepitance. No flank tenderness. NEURO: AOx3. SKIN: No rash or erythema of visible areas Initial Vital Signs Initial Vital Signs: Vital Signs Temperature 98.2 F 12/30/24 19:08 Pulse Rate 115 H 12/30/24 19:08 Respiratory Rate 18 12/30/24 19:08 Blood Pressure 161/103 H 12/30/24 19:08 Pulse Oximetry 96 12/30/24 19:08 Oxygen Delivery Method Room Air 12/30/24 19:08 Course Orders Ordered: ED Orders 12/30/24 19:27 Complete Blood Count AUTO DIFF Stat Comprehensive Metabolic Panel Stat Ketones (Beta-Hydroxybutyrate) Stat Lactate (Lactic Acid) Stat 12/30/24 19:31 EKG-12 Lead Stat 12/30/24 20:14 Urine Culture Stat Urine Microscopic Stat 12/30/24 23:30 CBC Auto Diff [Complete Blood Count AUTO DIFF] Stat CMP [Comprehensive Metabolic Panel] Stat Ketones (Beta-Hydroxybutyrate) Stat Discontinued Medications Sodium Chloride (Normal Saline 0.9%) 1,000 mls @ 1,000 mls/hr IV BOLUS ONE Stop: 12/30/24 22:49 Last Infusion: 12/30/24 23:35 Dose: Infused Documented By: Admin: 12/30/24 22:17 Dose: 1,000 mls/hr Documented By: WILFRED Sodium Chloride (Normal Saline 0.9%) 1,000 mls @ 1,000 mls/hr IV BOLUS ONE Stop: 12/30/24 22:50 Last Admin: 12/30/24 22:17 Dose: 1,000 mls/hr Documented By: WILFRED Insulin Human Regular (Insulin Regular 100 Unit/Ml 3 Ml Vial) 10 unit IV NOW ONE Stop: 12/30/24 21:51 Last Admin: 12/30/24 22:25 Dose: 7 unit Documented By: WILFRED Co-signed By: SHEN Vital Signs Vital signs: Vital Signs - 8 hr 12/30/24 19:08 12/30/24 22:08 12/30/24 22:30 Temperature 98.2 F Pulse Rate 115 H 101 H 97 H Respiratory Rate 18 12 22 Blood Pressure 161/103 H 123/84 115/74 Pulse Oximetry 96 95 94 Oxygen Delivery Method Room Air Room Air 12/30/24 23:00 Temperature Pulse Rate 95 H Respiratory Rate 20 Blood Pressure 120/78 Pulse Oximetry 94 Oxygen Delivery Method Room Air Medical Decision Making Lab Data 12/30/24 23:30 12/30/24 23:30 Labs: Lab Results 12/30/24 12/30/24 12/30/24 Range/Units 19:20 19:27 20:14 WBC 6.5 (4.5-11.0) X10^3/uL RBC 4.67 (4.0-5.2) X10^6/uL Hgb 14.8 (12.0-16.0) g/dL Hct 42.7 (36-46) % MCV 91.6 (80-100) fL MCH 31.8 (26-34) PG MCHC 34.7 (30-36) % RDW 13.0 (11.6-14.8) % Plt Count 210 (150-400) X10^3/uL Neut % (Auto) 60.6 (50-75) % Lymph % (Auto) 29.0 (25-40) % Kings % (Auto) 8.0 (3-14) % Eos % (Auto) 1.7 L (2-4) % Baso % (Auto) 0.7 (0-2) % Neut # (Auto) 3900 (6512-8152) /uL Lymph # (Auto) 1900 (3429-0973) /uL Kings # (Auto) 500 (0-900) /uL Eos # (Auto) 100 (0-450) /uL Baso # (Auto) 0 (0-100) /uL Sodium 137 (137-145) mmol/L Potassium 4.2 (3.4-5.1) mmol/L Chloride 105 (98-107) mmol/L Carbon Dioxide 24 (22-32) mmol/L BUN 14 (7-17) mg/dL Creatinine 0.88 (0.52-1.04) mg/dL Estimated GFR > 60 (>60) mL/min BUN/Creatinine Ratio 15.9 (6-22) Glucose 473 H* (70-99) mg/dL POC Whole Bld Glucose 444 H (70-99) mg/dL Lactate 1.1 (0.7-2.1) mmol/L Calcium 9.4 (8.4-10.2) mg/dL Total Bilirubin 0.3 (0.2-1.3) mg/dL AST 28 (14-36) IU/L ALT 45 H (<35) IU/L Alkaline Phosphatase 136 H (38-126) U/L Total Protein 7.3 (6.3-8.2) g/dL Albumin 4.1 (3.5-5.0) g/dL Globulin 3.2 (1.7-4.1) g/dL Albumin/Globulin Ratio 1.3 (1.0-2.8) Urine RBC 0-1/hpf D (0-5/HPF) Urine WBC 10-30/hpf H (0-5/HPF) Ur Squamous Epith Cells 0-1 /hpf (0-5/HPF) Urine Bacteria Moderate (10-30) H (None) Ur Culture Indicated? Specimen cultured Vol Urine Centrifuged 10ml (spun) Ketones 0.02 (<0.27) mmol/L 12/30/24 12/30/24 Range/Units 23:30 23:31 WBC 6.6 (4.5-11.0) X10^3/uL RBC 4.51 (4.0-5.2) X10^6/uL Hgb 14.1 (12.0-16.0) g/dL Hct 41.4 (36-46) % MCV 91.7 (80-100) fL MCH 31.2 (26-34) PG MCHC 34.0 (30-36) % RDW 13.1 (11.6-14.8) % Plt Count 185 (150-400) X10^3/uL Neut % (Auto) 52.3 (50-75) % Lymph % (Auto) 34.0 (25-40) % Kings % (Auto) 9.9 (3-14) % Eos % (Auto) 2.0 (2-4) % Baso % (Auto) 1.8 (0-2) % Neut # (Auto) 3500 (0995-3333) /uL Lymph # (Auto) 2300 (7984-1570) /uL Kings # (Auto) 700 (0-900) /uL Eos # (Auto) 100 (0-450) /uL Baso # (Auto) 100 (0-100) /uL Sodium 137 (137-145) mmol/L Potassium 3.8 (3.4-5.1) mmol/L Chloride 108 H (98-107) mmol/L Carbon Dioxide 24 (22-32) mmol/L BUN 14 (7-17) mg/dL Creatinine 0.78 (0.52-1.04) mg/dL Estimated GFR > 60 (>60) mL/min BUN/Creatinine Ratio 17.9 (6-22) Glucose 239 H D (70-99) mg/dL POC Whole Bld Glucose 238 H D (70-99) mg/dL Lactate (0.7-2.1) mmol/L Calcium 8.8 (8.4-10.2) mg/dL Total Bilirubin 0.4 (0.2-1.3) mg/dL AST 26 (14-36) IU/L ALT 39 H (<35) IU/L Alkaline Phosphatase 93 (38-126) U/L Total Protein 6.8 (6.3-8.2) g/dL Albumin 3.8 (3.5-5.0) g/dL Globulin 3.0 (1.7-4.1) g/dL Albumin/Globulin Ratio 1.3 (1.0-2.8) Urine RBC (0-5/HPF) Urine WBC (0-5/HPF) Ur Squamous Epith Cells (0-5/HPF) Urine Bacteria (None) Ur Culture Indicated? Vol Urine Centrifuged Ketones (<0.27) mmol/L Point of Care Testing Glucose POC 444 Urine Dip Bedside Urine Glucose 1000 mg/dl Bedside Urine Bilirubin - Negative Bedside Urine Ketone - Negative Urine Specific Lacrosse 1.01 Bedside Urine Occult Blood +/- Bedside Urine pH 6.0 Bedside Urine Protein - Negative Bedside Urine Urobilinogen - Negative Bedside Urine Nitrite - Negative Bedside Urine Leukocytes + 70 Esterase Point of care testing: Point of Care Testing Glucose POC 444 Urine Dip Bedside Urine Glucose 1000 mg/dl Bedside Urine Bilirubin - Negative Bedside Urine Ketone - Negative Urine Specific Lacrosse 1.01 Bedside Urine Occult Blood +/- Bedside Urine pH 6.0 Bedside Urine Protein - Negative Bedside Urine Urobilinogen - Negative Bedside Urine Nitrite - Negative Bedside Urine Leukocytes + 70 Esterase MDM Narrative Additional Information: All lab work, vital signs, nurse triage note, medication list, previous ER visits, and all imaging studies reviewed. WBC 6.5 hemoglobin 14.8 platelets 210 sodium 137 potassium 4 point chloride 105 CO2 24 BUN 14 creatinine 0.88 sugar 444 lactic acid 1.1 urine shows 10-30 WBC. Patient given fluids and insulin here refilled insulin medication. Discharge Plan Departure Patient Disposition: Home Clinical Impression: Acute hyperglycemia Instructions: DI for Hyperglycemia -- Adult Activity Restrictions/Additional Instructions: Return with new or worsening symptoms. Take your medicines directed. Follow up PCP this week. Prescriptions: New insulin lispro 100 unit/mL cartridge 120 unit SUBCUT USEASDIRECTD Qty: 30 0RF insulin lispro-aabc 100 unit/mL insulin pen 5 unit SUBCUT TID PRN (Reason: elevated blood sugar) 30 Days Qty: 15 0RF No Action cholecalciferol (vitamin D3) 125 mcg (5,000 unit) capsule 125 mcg PO DAILY Qty: 30 0RF gabapentin 100 mg capsule 200 mg PO 3XD PRN (Reason: anxiety ) Qty: 90 3RF atomoxetine 10 mg capsule 10 mg PO ONCE Qty: 30 2RF rizatriptan [Maxalt] 10 mg tablet 10 mg PO Q2-4H PRN (Reason: migraine headache) Qty: 10 11RF Rx Instructions: do not exceed 2 doses per 24 hrs metformin 500 mg tablet 1,000 mg PO BIDWMEAL Qty: 360 3RF losartan 25 mg tablet 25 mg PO BID Qty: 180 3RF aripiprazole [Abilify] 5 mg tablet 5 mg PO BEDTIME Qty: 30 11RF Januvia 100 mg tablet 100 mg PO DAILY Qty: 90 3RF trazodone 50 mg tablet 50 mg PO DAILY Qty: 90 3RF insulin lispro 100 unit/mL solution 120 unit SUBCUT DAILY Qty: 30 6RF Rx Instructions: via insulin pump Jardiance 25 mg tablet 25 mg PO DAILY Qty: 90 3RF atorvastatin [Lipitor] 40 mg tablet 40 mg PO BEDTIME Qty: 90 3RF ondansetron 4 mg tablet,disintegrating 4 mg PO Q8-12H PRN (Reason: nausea and vomiting) Qty: 60 11RF fluoxetine 40 mg capsule 80 mg PO DAILY promethazine 25 mg tablet 25 mg PO TID PRN (Reason: nausea and vomiting) Qty: 90 3RF (DME) pen needle, diabetic [1st Tier Unifine Pentips] 29 gauge x 1/2 needle See Rx Instructions .Route Qty: 600 3RF Rx Instructions: use to inject insulin 5 times per day and Victoza once daily (DME) pen needle, diabetic [BD Ultra-Fine Short Pen Needle] 31 gauge x 5/16 needle See Rx Instructions .ROUTE .MEDSUPPLY Qty: 1200 Patient Comments: [NO ORIGINAL SIG] Rx Instructions: As directed insulin lispro-aabc 100 unit/mL insulin pen 5 unit SUBCUT TID PRN (Reason: elevated blood sugars) Qty: 15 0RF cyclobenzaprine 5 mg tablet 5 mg PO Q8H PRN (Reason: muscle spasm) Qty: 30 5RF Referrals: Melissa Smith DO [Primary Care Provider, Family Practice] Stand Alone Forms: Patient Portal/API
[2024-12-30] MEDS: SODIUM CHLORIDE 0.9% 1,000 ML 1000 ML IV ×2 (22:17)
[2024-12-30] MEDS: INSULIN REGULAR 100 UNIT/ML 3 ML VIAL 10 UNIT IV (22:25)
[2024-12-30 22:30] VITALS: BP 115/74; PULSE 97; RESP 22; O2SAT 94
[2024-12-30 23:00] VITALS: BP 120/78; PULSE 95; RESP 20; O2SAT 94
[2024-12-30 23:30] VITALS: BP 124/78; PULSE 92; RESP 23; O2SAT 95
[2024-12-30 23:38] LABS: Add Manual Diff / Slide Review NO; Hematocrit 41.4 % (36-46); Hemoglobin 14.1 g/dL (12.0-16.0); Lymphocytes Absolute Auto 2300 /uL (1100-4500); Mean Corpuscular HGB Conc 34.0 % (30-36); Mean Corpuscular Hemoglobin 31.2 PG (26-34); Mean Corpuscular Volume 91.7 fL (80-100); Platelet Count 185 X10^3/uL (150-400)
[2024-12-30 23:49] LABS: Alanine Aminotransferase 39 IU/L (<35); Albumin 3.8 g/dL (3.5-5.0); Albumin Globulin Ratio 1.3 (1.0-2.8); Alkaline Phosphatase 93 U/L (38-126); Blood Urea Nitrogen 14 mg/dL (7-17); Calcium 8.8 mg/dL (8.4-10.2); Carbon Dioxide 24 mmol/L (22-32); Chloride 108 mmol/L (98-107); Estimated Glomerular Filt Rate > 60 mL/min (>60); Globulin 3.0 g/dL (1.7-4.1); Glucose 239 mg/dL (70-99); HEMOLYSIS < 15 (0-50); Potassium 3.8 mmol/L (3.4-5.1); Sodium 137 mmol/L (137-145); Total Protein 6.8 g/dL (6.3-8.2)
[2024-12-30 23:55] LABS: Ketones (Beta-Hydroxybutyrate) < 0.02 mmol/L (<0.27)
[2024-12-31] VITALS: BP 116/64; PULSE 89; RESP 22; O2SAT 93
== END 2024-12-31 00:27 | disposition home or self-care (01) ==
PROVIDERS: Emergency Provider Family Medicine; PCP Family Medicine
DX: E11.65 Type 2 diabetes mellitus with hyperglycemia (principal); Z79.4 Long term (current) use of insulin; T38.3X6A Underdosing of insulin and oral hypoglycemic [antidiabetic] drugs, initial encounter
CPT/HCPCS: 80053; 81003; 81015; 82009; 82962; 83605; 85025; 87086; 96374; 99284; J7030